=== PATIENT | male | born 1965 | race Caucasian/White ===

== ENCOUNTER 2018-08-25 13:34 | Emergency (ER) | payer MEDICARE, MEDICAID, SELFPAY ==
[2018-08-25 13:35] VITALS: BP 150/85; PULSE 86; RESP 16; TEMP 36.9; O2SAT 95; BMI 38.0
--- NOTE | 2018-08-25 14:08 | NURSING ---
CRISIS AWARE OF PATIENT
[2018-08-25 14:18] LABS: Absolute Lymphocyte Count 1.12 X10^3/ul (0.83-4.51); Absolute Neutrophil Count 3.5 X10^3/uL (2.0-7.7); Basophil# 0.03 X10^3/uL; Basophil% 0.6 % (0-1); Hemoglobin 14.9 g/dl (13.0-16.5); Lymphocyte # 1.12 X10^3/ul (4.0); Lymphocyte % 22.1 % (19-41); Mean Corp Hgb Conc 33.9 g/gl (32-36); Mean Corpuscular Hgb 31.7 pg (27.0-32.0); Mean Corpuscular Volume 93.6 fL (80-94); Mean Platelet Vol. 10.1 fl (6.2-12.0); Monocyte# 0.37 X10^3/uL; Monocyte% 7.3 % (0-10); Neutrophil # 3.45 X10^3/uL (2.7-7.7); Platelet Count 217 K/mm3 (150-450); RBC Distribution Width CV 12.4 % (11.6-14.6); RBC Distribution Width SD 42.6 fl (35.1-43.9); White Blood Count 5.1 K/mm3 (4.4-11.0)
[2018-08-25 14:19] LABS: POSITIVE COUNT NO; POSITIVE DIFFERENTIAL NO; POSITIVE MORPHOLOGY NO
--- NOTE | 2018-08-25 14:21 | ED.VISSUMM ---
- ER Visit Summary Date of Service: 08/25/18 Chief Complaint: Requesting a psychiatric admission History of Present Illness: The patient is a 53 M who was recently released from a home snf sentence. He says he needs time in a hospital. When I asked him why, he says that his dad has paid his rent. He says he cannot stay at his apartment because it has been sublet. He says that he cannot go to a homeless [facility] because he technically has an apartment. I asked him if I could speak with his dad, and he said absolutely not and he wants the strictest confidentiality. He has a history of schizophrenia. He also takes warfarin for history of PE. He says he has been compliant with his medication. He denies any medical complaints or pain. He denies any suicidal or homicidal thoughts. Physical Examination: Afebrile and vital signs unremarkable. Patient has a very flat affect and depressed mood. He speaks very slowly. Denies suicidal or homicidal thoughts. Heart is regular. Lungs clear. Abdomen soft. Moves all extremities. Normal ambulation. Test Results: We will check some basic labs, INR, alcohol level, and drug screen. Emergency Department Course and Treatment: Patient's CBC, BMP are unremarkable. INR 2.9. Alcohol negative. Drug screen pending. Patient has a depressed mood and flat affect. He is having paranoid thoughts. I had social work talk to him. She was unable to provide any assistance. He is becoming more paranoid and she thinks he could benefit from admission. I agree. Crisis will evaluate. The oncoming doctor will coordinate with crisis for placement. Treatment Plan: As above Disposition: Transfer pending crisis evaluation Impression: 1. Psychiatric evaluation 2. Paranoia This note was generated with [employer] software. It may contain incorrect words, spelling, and punctuation that were not noted in review of the chart prior to signing ED Disposition - Plan for ED Patient: Chief Complaint: Mental Health Referrals: Jac Bejarano MD [Primary Care Provider] -
[2018-08-25 14:25] LABS: International Normalized Ratio 2.9; Prothrombin Time (Protime)PT. 30.7 SECONDS (11.7-14.9)
--- NOTE | 2018-08-25 14:25 | ED.DCSUM_ITS ---
- ER Visit Summary Date of Service: 08/25/18 Chief Complaint: Requesting a psychiatric admission History of Present Illness: The patient is a 53 M who was recently released from a home retirement sentence. He says he needs time in a hospital. When I asked him why, he says that his dad has paid his rent. He says he cannot stay at his apartment because it has been sublet. He says that he cannot go to a homeless long term because he technically has an apartment. I asked him if I could speak with his dad, and he said absolutely not and he wants the strictest confidentiality. He has a history of schizophrenia. He also takes warfarin for history of PE. He says he has been compliant with his medication. He denies any medical complaints or pain. He denies any suicidal or homicidal thoughts. Physical Examination: Afebrile and vital signs unremarkable. Patient has a very flat affect and depressed mood. He speaks very slowly. Denies suicidal or homicidal thoughts. Heart is regular. Lungs clear. Abdomen soft. Moves all extremities. Normal ambulation. Test Results: We will check some basic labs, INR, alcohol level, and drug screen. Emergency Department Course and Treatment: Patient's CBC, BMP are unremarkable. INR 2.9. Alcohol negative. Drug screen pending. Patient has a depressed mood and flat affect. He is having paranoid thoughts. I had social work talk to him. She was unable to provide any assistance. He is becoming more paranoid and she thinks he could benefit from admission. I agree. Crisis will evaluate. The oncoming doctor will coordinate with crisis for placement. Treatment Plan: As above Disposition: Transfer pending crisis evaluation Impression: 1. Psychiatric evaluation 2. Paranoia This note was generated with [employer] software. It may contain incorrect words, spelling, and punctuation that were not noted in review of the chart prior to signing ED Disposition - Plan for ED Patient: Chief Complaint: Mental Health Referrals: Jac Bejarano MD [Primary Care Provider] -
[2018-08-25 14:28] LABS: Anion Gap 7 (5-15); BUN 23 mg/dL (7-18); BUN/Creat Ratio 22.8 RATIO (10-20); Chloride 107 mmol/L (98-107); Creatinine, Serum 1.01 mg/dL (0.70-1.30); EST Glomerular Filtration Rate 82 mL/min (>60); Est Glom Filt Rate - Afr Amer 99 mL/min (>60); Estimated Creatinine Clearance 92.84 ml/min; Glucose 91 mg/dL (74-106); Potassium 3.9 mmol/L (3.5-5.1); Sodium Level 139 mmol/L (136-145)
[2018-08-25 14:57] LABS: Alcohol, Blood (Medical)-Serum < 3.0 mg/dL
[2018-08-25 15:27] VITALS: RESP 16
[2018-08-25 15:46] LABS: Amphetamine Urine VISTA NEGATIVE (<1000 ng/mL); Barbiturate Urine VISTA NEGATIVE (< 200 ng/mL); Benzodiazepine Urine VISTA NEGATIVE (< 200 ng/mL); Cocaine Urine VISTA NEGATIVE (< 300 ng/mL); Ecstacy Urine VISTA NEGATIVE (< 500 ng/mL); Methadone Urine VISTA NEGATIVE (< 300 ng/mL); PCP Urine VISTA NEGATIVE (< 25 ng/mL); THC Urine VISTA NEGATIVE (< 50 ng/mL); Vista UDS pH Range 5
--- NOTE | 2018-08-25 15:51 | CM.ED ---
Social Work Assessment Referral from nursing that pt was recently [facility] from [facility] and cannot go back to housing. Face to face with the pt who has a flat affect and pressured speech. Does not make eye contact with this social work manager throughout conversation. Introduced self and role at [facility]. Begin discussing with the pt and he keeps his mouth shut and mumbles with lips closed. Explain to the pt that this social work manager cannot assist him if he does not talk clearly. Pt begins to verbalize responses with pressured speech. Conversation is preoccupied with the utmost confidentiality and are paranoid in nature. Pt states he has been in house custodial/house [place] [facility]. Inquire how long and he states he does not know. States that [place] in these house prisons. Inquire when he was released and he states that he is not sure. Inquire how he got to the hospital and he states that [address] from [address] [place], [place]. Pt reports that his father subleases his apartment to the [facility] Police when he goes to these [place] [facility] houses. Claims that he needs to go to a hospital for help. States that he does have SI, most recently last night. Claims that he would complete this by refusing medication, resuscitation, and life support. Pt claims that he would have to get to this point through natural causes however and denies any intent on inflicting harm upon himself. Denies having firearms or weapons in the house. Denies homicidal ideation. Inquire about hallucinations and delusions, and pt responds, Everything I see and hear is real. Pt goes on to state that he is advanced in mathematics, and that mathematicians and scientists envy him when he comes up with new findings in his math. Goes on with undecipherable ramblings about CSI, FBI, NSA, [facility], [facility] PD... Pt does report a history of psychiatric hospitalization in [place] and [facility] in the past. Last hospitalization was four years ago, but he does not remember what for. He sees a psychiatrist at [facility]. States he last saw her on a Wednesday, but does not remember the date. Claims that he recently transferred psychiatrists and does not know the name of the present one. Declines going to counseling or having a telehealth case manager. Inform that a passementerie worker will come to evaluate if he needs psychiatric hospitalization. Understanding expressed, and denies needs at this time. PLAN: Crisis to evaluate for psychiatric hospitalization. Charleen Rosales, BRANCH SERVICE SPECIALIST, VISUAL SPECIALIST
[2018-08-25 16:59] VITALS: RESP 18
[2018-08-25 17:02] VITALS: RESP 18
--- NOTE | 2018-08-25 21:34 | NURSING ---
FELIPA IS AT THE BEDSIDE SPEAKING WITH THE PATIENT CURRENTLY.
[2018-08-25 22:13] VITALS: BP 140/88; PULSE 88; RESP 18; TEMP 36.9; O2SAT 94
--- NOTE | 2018-08-25 22:15 | NURSING ---
FELIPA TOLD ME THAT THE PATIENT IS AT HIS BASELINE, AND SHE RECOMMENDS THAT HE GO BACK HOME. VITALS ARE STABLE, PATIENT HAS A FLAT AFFECT, AND DENIES ANY NEEDS AT THIS TIME. PATIENT SAID HE LIVES CLOSE AND WOULD PROBABLY WALK HOME IF ABLE.
--- NOTE | 2018-08-25 22:38 | ED.DEP ---
ED Disposition - Plan for ED Patient: Disposition: Home or Assisted Living Chief Complaint: Mental Health Referrals: Counseling,Center [GROUP OF PHYSICIANS] - 1 Day Additional Instructions: Up with counseling center tomorrow. Return to the ER if you are feeling worse or suicidal.
--- NOTE | 2018-08-25 22:41 | ED.RN ---
PATIENT FEELS OK TO GO HOME. HE IS INSTRUCTED TO FOLLOW UP WITH THE COUNSELING CENTER TOMORROW. PATIENT IS GOING TO BE TAKEN HOME BY THE COUNSELOR FELIPA. VITALS ARE STABLE. PATIENT WALKED OUT TO FELIPA'S CAR BY THIS NURSE.
== END 2018-08-25 23:30 | disposition home or self-care (01) ==
PROVIDERS: Emergency Medicine; Emergency Provider Emergency Medicine; Family Provider Internal Medicine; PCP Internal Medicine
DX: F22 Delusional disorders (principal); Z86.711 Personal history of pulmonary embolism; Z79.01 Long term (current) use of anticoagulants; Z72.0 Tobacco use; Z79.899 Other long term (current) drug therapy
CPT/HCPCS: 36415; 80048; 80307; 80320; 85025; 85610; 99282; J7030; G0480

== ENCOUNTER 2019-01-19 08:48 | Emergency (ER) | payer MEDICARE, MEDICAID, SELFPAY ==
[2019-01-19 08:48] VITALS: BP 122/79; PULSE 80; RESP 18; TEMP 36.8; BMI 35.5
--- NOTE | 2019-01-19 08:56 | ED.RN ---
pt states feeling suicidal. lc told pt to come to ed to be admitted to [facility]. pt will not answer questions about plan
--- NOTE | 2019-01-19 09:19 | ED.RN ---
this rn contacted counseling center. they states pt did see his senior case manager and psychiatrist on wednesday and denied being suicidal. this rn then contacted the police. they states they have had no contact with pt since oct. dr black aware
--- NOTE | 2019-01-19 09:20 | ED.VIS.GEN ---
History of Present Illness Chief Complaint: Mental Health Informant: Patient Onset: - - Unable to determine Context: - - Uncertain Timing: - - Unable to determine Quality: Read narrative Current Severity: - - Uncertain Maximum Severity: - - Uncertain Worsened by: Nothing per patient Relieved by: Nothing per patient Associated Symptoms: Suicidal thoughts for greater than 1 year Narrative: Patient is a middle-aged male with history of schizophrenia who saw his therapist on Wednesday. His nurse, Avni, contacted counseling center. He apparently did not voice suicidal thoughts to his counselor as he informed me. Patient acknowledged initially that he has had suicidal thoughts for greater than a year. He apparently has no plan. Attempting to determine if he is in a correction or lives by himself. Patient has history of becoming angry and agitated. History is limited secondary to poverty of speech and refusing to answer questions. Prior similar symptoms: Yes Recent Illness/Hospitalization: No - Last ER visit July 2018 - Past Medical History (1) Depression Status: Acute (2) Psychosis Status: Acute Past Medical History - Allergies and Home Meds Allergies/Adverse Reactions: Allergies JUST A BUNCH OF PHYCHOTROPIC MEDS. Allergy (Uncoded 12/29/14 14:14) Unknown Primary Care Physician: Jac Bejarano MD [Primary Care Provider] - Prior records reviewed: Yes Lives: Alone Smoking Status: Current every day smoker Alcohol: None Drugs: None Review of Systems ROS: Unable to Obtain - Limited answers and documented what the patient was willing to answer. General: Denies: Chills, Fever, Malaise, Sweats Eyes: Denies: Visual changes - bilaterally, Blurred Vision - bilaterally, Diplopia Cardiovascular: Denies: Chest pain, Palpitations Respiratory: Denies: Dyspnea, Cough Gastrointestinal: Denies: Abdominal pain, Nausea, Vomiting, Diarrhea Skin: Denies: Rash Neurological: Denies: Weakness Psych: Reports: Suicidal ideations - Acknowledge suicidal thoughts for greater than 1 year. No plan Physical Exam Vital Signs/Narrative: Vital Signs Temp Pulse Resp BP 01/19/19 08:48 98.2 F 80 18 122/79 H Inital Vital Signs reviewed: Yes General: Well nourished, Well developed, Obese, Unkempt, No Acute Distress - Patient became agitated the more questions that were asked. Head: Normocephalic, Atraumatic Eyes: Perrl, EOMI. Negative for: Pale conjunctiva, Scleral icterus ENT: Moist mucous membranes, No rhinorrhea Cardiovascular: Regular rate, Regular rhythm, No murmurs, Normal S1, Normal S2 Respiratory: No distress, CTA bilaterally, Chest nontender Abdomen: Soft, Nontender, Nondistended, Normal bowel sounds, No masses Back: Nontender, Normal Inspection Skin: Normal color, No rash. Negative for: Cyanosis, Jaundice, Trauma Neurological: Alert, Cranial nerves II-XII grossly intact, Normal Strength, Normal Sensation, Normal DTR, Normal Gait Psychological: - - Poverty of speech, flat/restricted affect. Agitation after he refused to answer questions were asked. Diagnostic/Tx/Re-eval Laboratory Results 01/19/19 01/19/19 01/19/19 09:30 09:30 09:35 WBC 4.0 L RBC 4.43 L Hgb 14.1 Hct 41.4 MCV 93.5 MCH 31.8 MCHC 34.1 RDW 12.5 RDW Differential 42.4 Plt Count 205 MPV 10.0 Immature Gran % (Auto) 0.200 Neut % (Auto) 72.4 H Lymph % (Auto) 16.7 L Sevier % (Auto) 6.5 Eos % (Auto) 3.5 Baso % (Auto) 0.7 Absolute Neuts (auto) 2.9 Absolute Lymphs (auto) 0.67 L Total Counted Not Reportable Sodium 141 Potassium 3.6 Chloride 109 H Carbon Dioxide 26.0 Anion Gap 6 BUN 18 Creatinine 1.04 Estim Creat Clear Calc 90.16 Est GFR (MDRD) Af Amer 96 Est GFR (MDRD) Non-Af 79 BUN/Creatinine Ratio 17.3 Glucose 111 H Calcium 8.5 Urine Color Yellow Urine Clarity Clear Urine pH 6.5 Ur Specific [place] 1.010 Urine Protein Negative Urine Glucose (UA) Normal Urine Ketones Negative Urine Occult Blood Negative Urine Nitrite Negative Urine Bilirubin Negative Urine Urobilinogen Normal Ur Leukocyte Esterase Negative Urine RBC 0 SEEN Urine WBC 0 SEEN Ur Squamous Epith Cells 0-5 SEEN Urine Bacteria 0 SEEN Urine Mucus 0 SEEN - Medical Decision Making Patient with known psychiatric disorder. Since he does not a specific plan has had suicidal thoughts for greater than a year he was not placed in suicide precautions. To evaluate for metabolic infectious causes a CBC, BMP and UA were obtained. His nurse contacted the counseling center. I was made aware that he did not voice suicidal thoughts to a psychiatrist. He states he did. When questioned he became agitated. Will determine if he lives alone or in correction and will attempt to ask additional questions to determine if patient is safe for discharge with urgent follow-up versus [facility] social work faculty member evaluation for acute inpatient therapy. Metabolic infectious work-up was negative. Placed in social work faculty member from counseling center did see patient and agrees this is Mr. Ekaterina almonte. Since he is not homicidal or suicidal he was discharged to home. ED Disposition - Plan for ED Patient: Disposition: Home or Assisted Living Diagnosis: Schizophrenia, catatonic, chronic Instructions: ED Schizophrenia General Referrals: Jac Bejarano MD [Primary Care Provider] - Counseling,Center [GROUP OF PHYSICIANS] - Keep Maria E appointment
--- NOTE | 2019-01-19 09:24 | ED.DCSUM_ITS ---
History of Present Illness Chief Complaint: Mental Health Informant: Patient Onset: - - Unable to determine Context: - - Uncertain Timing: - - Unable to determine Quality: Read narrative Current Severity: - - Uncertain Maximum Severity: - - Uncertain Worsened by: Nothing per patient Relieved by: Nothing per patient Associated Symptoms: Suicidal thoughts for greater than 1 year Narrative: Patient is a middle-aged male with history of schizophrenia who saw his mang[facility] on Wednesday. His nurse, Avni, contacted counseling center. He apparently did not voice suicidal thoughts to his counselor as he informed me. Patient acknowledged initially that he has had suicidal thoughts for greater than a year. He apparently has no plan. Attempting to determine if he is in a shelter or lives by himself. Patient has history of becoming angry and agitated. History is limited secondary to poverty of speech and refusing to answer questions. Prior similar symptoms: Yes Recent Illness/Hospitalization: No - Last ER visit July 2018 - Past Medical History (1) Depression Status: Acute (2) Psychosis Status: Acute Past Medical History - Allergies and Home Meds Allergies/Adverse Reactions: Allergies JUST A BUNCH OF PHYCHOTROPIC MEDS. Allergy (Uncoded 12/29/14 14:14) Unknown Primary Care Physician: Jac Bejarano MD [Primary Care Provider] - Prior records reviewed: Yes Lives: Alone Smoking Status: Current every day smoker Alcohol: None Drugs: None Review of Systems ROS: Unable to Obtain - Limited answers and documented what the patient was willing to answer. General: Denies: Chills, Fever, Malaise, Sweats Eyes: Denies: Visual changes - bilaterally, Blurred Vision - bilaterally, Diplopia Cardiovascular: Denies: Chest pain, Palpitations Respiratory: Denies: Dyspnea, Cough Gastrointestinal: Denies: Abdominal pain, Nausea, Vomiting, Diarrhea Skin: Denies: Rash Neurological: Denies: Weakness Psych: Reports: Suicidal ideations - Acknowledge suicidal thoughts for greater than 1 year. No plan Physical Exam Vital Signs/Narrative: Vital Signs Temp Pulse Resp BP 01/19/19 08:48 98.2 F 80 18 122/79 H Inital Vital Signs reviewed: Yes General: Well nourished, Well developed, Obese, Unkempt, No Acute Distress - Patient became agitated the more questions that were asked. Head: Normocephalic, Atraumatic Eyes: Perrl, EOMI. Negative for: Pale conjunctiva, Scleral icterus ENT: Moist mucous membranes, No rhinorrhea Cardiovascular: Regular rate, Regular rhythm, No murmurs, Normal S1, Normal S2 Respiratory: No distress, CTA bilaterally, Chest nontender Abdomen: Soft, Nontender, Nondistended, Normal bowel sounds, No masses Back: Nontender, Normal Inspection Skin: Normal color, No rash. Negative for: Cyanosis, Jaundice, Trauma Neurological: Alert, Cranial nerves II-XII grossly intact, Normal Strength, Normal Sensation, Normal DTR, Normal Gait Psychological: - - Poverty of speech, flat/restricted affect. Agitation after he refused to answer questions were asked. Diagnostic/Tx/Re-eval Laboratory Results 01/19/19 01/19/19 01/19/19 09:30 09:30 09:35 WBC 4.0 L RBC 4.43 L Hgb 14.1 Hct 41.4 MCV 93.5 MCH 31.8 MCHC 34.1 RDW 12.5 RDW Differential 42.4 Plt Count 205 MPV 10.0 Immature Gran % (Auto) 0.200 Neut % (Auto) 72.4 H Lymph % (Auto) 16.7 L [place] % (Auto) 6.5 Eos % (Auto) 3.5 Baso % (Auto) 0.7 Absolute Neuts (auto) 2.9 Absolute Lymphs (auto) 0.67 L Total Counted Not Reportable Sodium 141 Potassium 3.6 Chloride 109 H Carbon Dioxide 26.0 Anion Gap 6 BUN 18 Creatinine 1.04 Estim Creat Clear Calc 90.16 Est GFR (MDRD) Af Amer 96 Est GFR (MDRD) Non-Af 79 BUN/Creatinine Ratio 17.3 Glucose 111 H Calcium 8.5 Urine Color Yellow Urine Clarity Clear Urine pH 6.5 Ur Specific [place] 1.010 Urine Protein Negative Urine Glucose (UA) Normal Urine Ketones Negative Urine Occult Blood Negative Urine Nitrite Negative Urine Bilirubin Negative Urine Urobilinogen Normal Ur Leukocyte Esterase Negative Urine RBC 0 SEEN Urine WBC 0 SEEN Ur Squamous Epith Cells 0-5 SEEN Urine Bacteria 0 SEEN Urine Mucus 0 SEEN - Medical Decision Making Patient with known psychiatric disorder. Since he does not a specific plan has had suicidal thoughts for greater than a year he was not placed in suicide precautions. To evaluate for metabolic infectious causes a CBC, BMP and UA were obtained. His nurse contacted the counseling center. I was made aware that he did not voice suicidal thoughts to a psychiatrist. He states he did. When questioned he became agitated. Will determine if he lives alone or in shelter and will attempt to ask additional questions to determine if patient is safe for discharge with urgent follow-up versus [facility] psychosocial rehabilitation counselor evaluation for acute inpatient therapy. Metabolic infectious work-up was negative. Placed in psychosocial rehabilitation counselor from [facility] did see patient and agrees this is Mr. Ekaterina almonte. Since he is not homicidal or suicidal he was discharged to home. ED Disposition - Plan for ED Patient: Disposition: Home or Assisted Living Diagnosis: Schizophrenia, catatonic, chronic Instructions: ED Schizophrenia General Referrals: Jac Bejarano MD [Primary Care Provider] - Counseling,Center [GROUP OF PHYSICIANS] - Keep Maria E appointment
[2019-01-19 10:08] LABS: Absolute Lymphocyte Count 0.67 X10^3/ul (0.83-4.51); Absolute Neutrophil Count 2.9 X10^3/uL (2.0-7.7); Basophil# 0.03 X10^3/uL; Basophil% 0.7 % (0-1); Eosinophil# 0.14 X10^3/uL; Eosinophils% 3.5 % (0-5); Hematocrit 41.4 % (40-54); Hemoglobin 14.1 g/dl (13.0-16.5); Lymphocyte # 0.67 X10^3/ul (4.0); Lymphocyte % 16.7 % (19-41); Mean Corp Hgb Conc 34.1 g/gl (32-36); Mean Corpuscular Hgb 31.8 pg (27.0-32.0); Mean Corpuscular Volume 93.5 fL (80-94); Monocyte# 0.26 X10^3/uL; Monocyte% 6.5 % (0-10); Neutrophil % 72.4 % (47-70); POSITIVE COUNT NO; POSITIVE DIFFERENTIAL NO; POSITIVE MORPHOLOGY NO; Platelet Count 205 K/mm3 (150-450); RBC Distribution Width CV 12.5 % (11.6-14.6); RBC Distribution Width SD 42.4 fl (35.1-43.9); Red Blood Count 4.43 M/mm3 (4.6-6.2)
[2019-01-19 10:13] LABS: Anion Gap 6 (5-15); BUN 18 mg/dL (7-18); BUN/Creat Ratio 17.3 RATIO (10-20); Calcium,Total 8.5 mg/dL (8.5-10.1); Chloride 109 mmol/L (98-107); Creatinine, Serum 1.04 mg/dL (0.70-1.30); EST Glomerular Filtration Rate 79 mL/min (>60); Est Glom Filt Rate - Afr Amer 96 mL/min (>60); Estimated Creatinine Clearance 90.16 ml/min; Glucose 111 mg/dL (74-106); Potassium 3.6 mmol/L (3.5-5.1); Sodium Level 141 mmol/L (136-145)
[2019-01-19 10:47] LABS: Bacteria 0 SEEN /hpf (None Seen); Mucous, Urine 0 SEEN /hpf (<or=2+); Red Blood Cells-Urine 0 SEEN /hpf (0-5); White Blood Cells 0 SEEN /hpf (0-5)
[2019-01-19 10:48] LABS: Color, Urine Yellow (Yellow); Glucose, Dipstick Normal (Normal); Ketone-Dipstick Negative (Negative); Leukocyte Esterase-Dipstick Negative /ul (Negative); Nitrite-Dipstick Negative (Negative); Occult Blood-Urine Negative /ul (Negative); Protein-Dipstick Negative (Negative); Urine Bilirubin Dipstick Negative (Negative); Urine Clarity Clear (Clear); Urine Urobilinogen Normal (Normal); Urine pH 6.5 (5.0 - 8.0)
--- NOTE | 2019-01-19 10:56 | NURSING ---
GEOVANNA, CRISIS, HAS CHART
--- NOTE | 2019-01-19 10:56 | CM.ED ---
SOCIAL WORK CASE DISCUSSED WITH GEOVANNA FROM CRISIS. GEOVANNA TO SEE PATIENT AT THIS TIME. HAILEE JOHNSON, TYRE FINISHER AND EXAMINER, BEHAVIORAL HEALTH DIRECTOR.
[2019-01-19 10:57] LABS: Squamous Epithelial Cells - UA 0-5 SEEN /hpf (0-5)
--- NOTE | 2019-01-19 11:10 | CM.ED ---
SOCIAL WORK UPDATED BY GEOVANNA WITH CRISIS, PLAN FOR PATIENT TO RETURN HOME. DR. DIXON UPDATED BY CRISIS. HAILEE JOHNSON, SUPERVISOR LANDSCAPE, COURTESY BUS DRIVER.
== END 2019-01-19 12:54 | disposition home or self-care (01) ==
PROVIDERS: Emergency Provider Emergency Medicine; Family Provider Internal Medicine; PCP Internal Medicine
DX: F20.2 Catatonic schizophrenia (principal); E66.9 Obesity, unspecified; F17.200 Nicotine dependence, unspecified, uncomplicated
CPT/HCPCS: 36415; 80048; 81001; 85025

== ENCOUNTER 2019-01-19 19:36 | Emergency (ER) | payer MEDICARE, MEDICAID, SELFPAY ==
[2019-01-19 08:48] VITALS: BMI 35.5
[2019-01-19 19:38] VITALS: BP 146/84; PULSE 81; RESP 17; TEMP 27.2; O2SAT 95; BMI 34.9
--- NOTE | 2019-01-19 20:20 | CM.ED ---
SOCIAL WORK UPDATED BY NURSE, JOSH, PATIENT REQUESTING TO SPEAK WITH REPAIRER [employer]. PATIENT WAS SEEN IN ED EARLIER THIS DAY BY BULK PLANT AGENT, GEOVANNA. MET WITH PATIENT AT BEDSIDE. PATIENT REPORTS POLICE WANT ME OUT OF [facility]. IF I DON'T LEAVE THEY ARE GOING TO KILL ME. PATIENT STATES HIS FATHER PAID FOR HIS APARTMENT AND NOW THE POLICE ARE TELLING PATIENT THAT IF HE GOES BACK TO THE APARTMENT HE WILL BE ARRESTED FOR TRESPASSING. PATIENT REPORTS WISHES TO GO TO THE HOMELESS INTERMEDIATE IN [place]. PATIENT CONCERNED ABOUT HIS MEDICATION AND HOW HE WILL BE ABLE TO GET THEM IF HE MUST LEAVE TOWN. INQUIRED ABOUT LEGAL GUARDIAN. PATIENT REPORTS GUARDIAN IS HAILEE AGUILAR. PATIENT DOES NOT KNOW PHONE NUMBER FOR GUARDIAN. INFORMED PATIENT THIS WORKER WOULD LIKE TO CALL GUARDIAN TO DISCUSS SAFE AND APPROPRIATE D/C PLANNING. PATIENT VERBALIZED UNDERSTANDING. CALL TO PATIENT'S GUARDIAN, HAILEE AGUILAR ([phone]) WHO REPORTS NONE OF THE ABOVE IS TRUE AND FEELS PATIENT IS REQUIRING INPATIENT PSYCH HOSPITALIZATION. PATIENT WITH HX OF SCHIZOPHRENIA. HAILEE REQUESTING CALL FROM BULK PLANT AGENT. CASE DISCUSSED WITH DR. OQUENDO AND BULK PLANT AGENT, BORIS. CRISIS TO ASSESS PATIENT. HAILEE JOHNSON, RESUME WRITER, COST MANAGER.
--- NOTE | 2019-01-19 20:30 | ED.VISSUMM ---
- ER Visit Summary Date of Service: 01/19/19 Chief Complaint: Psychiatric evaluation History of Present Illness: The patient is a 53 M history of schizophrenia was seen earlier in the ED and discharged home from the ED. Patient denies being suicidal or homicidal. He was seen by clinical social work aide earlier today with his visit, he was not open with his history at that time. He denies suicidal homicidal ideations. He was deemed appropriate for discharge. Patient returns to the ED today stating he was kicked out of his apartment today and his staff has been confiscated. He states that he was told if he goes back to the department he will be trespassing police will be called. He states he needs his medications. He states he has a place at the homeless assisted in [place] and he does have cab fare. He denies any symptoms. Denies alcohol, tobacco, illicit drug use. Shortly after discussion with patient, clinical social work aide here at present, reportedly discussed with his gearcase assembler which patient states is Elbert Razo, reports patient is trying to skip town. Reports he states that police are after him he is trying to leave town. Reports that he is not evicted. Reports that patient has done this in the past. Physical Examination: General: Alert and oriented ?3, no acute distress HEENT: Normocephalic, atraumatic. Moist mucosa membranes Neck: supple, nontender. Cardiovascular: Regular rate and rhythm, no murmurs Respiratory: Normal breath sounds, symmetric, no distress Abdomen: Soft, nontender, nondistended Extremities: Nontender, no edema, pulses intact ?4 Neuro: no focal neurological deficits. Psych: Denies suicidal homicidal ideations. Blunt Affect. Denies auditory or visual hallucinations. Test Results: Toxin alcohol normal Emergency Department Course and Treatment: Patient had CBC BMP UA obtained earlier today are normal. We will add a tox screen in alcohol level. We will plan on having crisis evaluation. Patient medically cleared. Evaluated by initial crisis team primary care physician prior to shift change, he was known to her from [place]. Reports this is his usual behavior with his schizophrenia flare. Currently plan on working on placement of patient. Treatment Plan: [] Disposition: Pending Impression: 1. Acute psychosis 2. History of schizophrenia This note was generated with [employer] dictation software. It may contain incorrect words, spelling, and punctuation that were not noted in review of the chart prior to signing ED Disposition - Plan for ED Patient: Diagnosis: Psychosis, Schizophrenia Referrals: Jac Bejarano MD [Primary Care Provider] -
--- NOTE | 2019-01-19 20:34 | ED.DCSUM_ITS ---
- ER Visit Summary Date of Service: 01/19/19 Chief Complaint: Psychiatric evaluation History of Present Illness: The patient is a 53 M history of schizophrenia was seen earlier in the ED and discharged home from the ED. Patient denies being suicidal or homicidal. He was seen by social media director earlier today with his visit, he was not open with his history at that time. He denies suicidal homicidal ideations. He was deemed appropriate for discharge. Patient returns to the ED today stating he was kicked out of his apartment today and his staff has been confiscated. He states that he was told if he goes back to the department he will be trespassing police will be called. He states he needs his medications. He states he has a place at the homeless skilled nursing in [place] and he does have cab fare. He denies any symptoms. Denies alcohol, tobacco, illicit drug use. Shortly after discussion with patient, social media director here at present, reportedly discussed with his case management assistant which patient states is Elbert Razo, reports patient is trying to skip town. Reports he states that police are after him he is trying to leave town. Reports that he is not evicted. Reports that patient has done this in the past. Physical Examination: General: Alert and oriented ?3, no acute distress HEENT: Normocephalic, atraumatic. Moist mucosa membranes Neck: supple, nontender. Cardiovascular: Regular rate and rhythm, no murmurs Respiratory: Normal breath sounds, symmetric, no distress Abdomen: Soft, nontender, nondistended Extremities: Nontender, no edema, pulses intact ?4 Neuro: no focal neurological deficits. Psych: Denies suicidal homicidal ideations. Blunt Affect. Denies auditory or visual hallucinations. Test Results: Toxin alcohol normal Emergency Department Course and Treatment: Patient had CBC BMP UA obtained earlier today are normal. We will add a tox screen in alcohol level. We will plan on having crisis evaluation. Patient medically cleared. Evaluated by initial crisis fast food team member prior to shift change, he was known to her from [place]. Reports this is his usual behavior with his schizophrenia flare. Currently plan on working on placement of patient. Treatment Plan: [] Disposition: Pending Impression: 1. Acute psychosis 2. History of schizophrenia This note was generated with [employer] dictation software. It may contain incorrect words, spelling, and punctuation that were not noted in review of the chart prior to signing ED Disposition - Plan for ED Patient: Diagnosis: Psychosis, Schizophrenia Referrals: Jac Bejarano MD [Primary Care Provider] -
[2019-01-19 21:23] VITALS: PULSE 87; RESP 16; O2SAT 98
[2019-01-19 21:37] LABS: Amphetamine Urine VISTA NEGATIVE (<1000 ng/mL); Barbiturate Urine VISTA NEGATIVE (< 200 ng/mL); Benzodiazepine Urine VISTA NEGATIVE (< 200 ng/mL); Cocaine Urine VISTA NEGATIVE (< 300 ng/mL); Ecstacy Urine VISTA NEGATIVE (< 500 ng/mL); Methadone Urine VISTA NEGATIVE (< 300 ng/mL); PCP Urine VISTA NEGATIVE (< 25 ng/mL); THC Urine VISTA NEGATIVE (< 50 ng/mL); Vista UDS pH Range 6
[2019-01-19 22:22] VITALS: PULSE 88; RESP 16; O2SAT 98
--- NOTE | 2019-01-19 22:22 | CM.ED ---
SOCIAL WORK AMPOULE EXAMINER, FELIPA WORKING ON PLACEMENT AT THIS TIME. HAILEE JOHNSON, MANAGEMENT LIAISON, HOUSING INSTALLER.
[2019-01-19 23:30] VITALS: BP 136/80; PULSE 74; RESP 16; O2SAT 98
[2019-01-20] VITALS (14 sets, daily range): BP systolic 121–134; BP diastolic 79–90; PULSE 65–92; RESP 14–70; TEMP 36.8; O2SAT 96–99
--- NOTE | 2019-01-20 04:03 | ED.RN ---
verbally reviewed medication list with pt. home meds ordered.
[2019-01-20] MEDS: Famotidine 20 MG Tablet PO (06:19)
[2019-01-20] MEDS: Multivitamins,Therapeutic Tablet 1 TABLET PO (06:19)
[2019-01-20] MEDS: Levothyroxine 50 MCG Tablet PO (06:19)
--- NOTE | 2019-01-20 09:26 | EKG12_ITS ---
Test Reason : MENTAL HEALTH Blood Pressure : / mmHG Vent. Rate : 065 BPM Atrial Rate : 065 BPM P-R Int : 138 ms QRS Dur : 096 ms QT Int : 434 ms P-R-T Axes : 024 000 -07 degrees QTc Int : 451 ms Normal sinus rhythm Minimal voltage criteria for LVH, may be normal variant Borderline ECG Confirmed by KAT HAMPTON, ABDELRAHMAN ([id number]), fan mail editor CIPRIANO VERA ([id number]) on 01/23/2019 11:40:41 AM Referred By: ZACK Confirmed By:ABDELRAHMAN STEPHENS MD
[2019-01-20 10:23] LABS: International Normalized Ratio 2.5; Prothrombin Time (Protime)PT. 26.8 SECONDS (11.7-14.9)
[2019-01-20] MEDS: Benztropine 2 MG Tablet 1 MG PO (11:25)
[2019-01-20] MEDS: Fenofibrate 145 MG Tablet PO (11:26)
[2019-01-20] MEDS: Ziprasidone HCl 20 MG Capsule 80 MG PO (11:26)
== END 2019-01-20 13:29 ==
PROVIDERS: Emergency Medicine; Emergency Provider Emergency Medicine; Family Provider Internal Medicine; PCP Internal Medicine
DX: F23 Brief psychotic disorder (principal); Z72.0 Tobacco use; Z59.0 Homelessness; Z79.899 Other long term (current) drug therapy; Z79.01 Long term (current) use of anticoagulants
CPT/HCPCS: 36415; 80048; 80307; 80320; 81001; 85025; 85610; 93005; 99282; 99284; G0480

== ENCOUNTER 2019-04-06 21:17 | Emergency (ER) | payer MEDICARE, MEDICAID, SELFPAY ==
[2019-04-06 21:17] VITALS: BP 131/76; PULSE 77; RESP 16; TEMP 36.3; O2SAT 94; BMI 33.9
[2019-04-06 21:50] LABS: Absolute Lymphocyte Count 1.51 X10^3/ul (0.83-4.51); Basophil# 0.02 X10^3/uL; Basophil% 0.3 % (0-1); Eosinophils% 1.6 % (0-5); Hematocrit 40.6 % (40-54); Lymphocyte # 1.51 X10^3/ul (4.0); Lymphocyte % 24.6 % (19-41); Mean Corp Hgb Conc 34.5 g/gl (32-36); Mean Corpuscular Volume 92.7 fL (80-94); Monocyte# 0.51 X10^3/uL; Monocyte% 8.3 % (0-10); Neutrophil # 3.99 X10^3/uL (2.7-7.7); Neutrophil % 65.2 % (47-70); Platelet Count 213 K/mm3 (150-450); RBC Distribution Width CV 12.5 % (11.6-14.6); RBC Distribution Width SD 42.6 fl (35.1-43.9); Red Blood Count 4.38 M/mm3 (4.6-6.2); White Blood Count 6.1 K/mm3 (4.4-11.0)
[2019-04-06 21:53] LABS: Anion Gap 8 (5-15); BUN 21 mg/dL (7-18); BUN/Creat Ratio 20.8 RATIO (10-20); Calcium,Total 8.9 mg/dL (8.5-10.1); Chloride 107 mmol/L (98-107); Creatinine, Serum 1.01 mg/dL (0.70-1.30); EST Glomerular Filtration Rate 82 mL/min (>60); Est Glom Filt Rate - Afr Amer 99 mL/min (>60); Estimated Creatinine Clearance 92.84 ml/min; Glucose 91 mg/dL (74-106); Potassium 3.5 mmol/L (3.5-5.1); Sodium Level 140 mmol/L (136-145)
[2019-04-06 21:56] LABS: POSITIVE COUNT NO; POSITIVE DIFFERENTIAL NO; POSITIVE MORPHOLOGY NO
--- NOTE | 2019-04-06 21:58 | ED.RN ---
PATIENT EXHIBITS A VERY FLAT AFFECT, HE MOSTLY ONLY ANSWERS YES/NO QUESTIONS. HE WILL NOT MAKE EYE CONTACT. STATES NO WHEN I ASKED HIM IF HE FELT SAFE AT HOME. HE LIVES ALONE AND DENIES SUICIDAL OR HOMICIDAL IDEATION.
--- NOTE | 2019-04-06 22:06 | NURSING ---
CALLED CRISIS AT [phone]
[2019-04-06 22:16] LABS: Amphetamine Urine VISTA NEGATIVE (<1000 ng/mL); Barbiturate Urine VISTA NEGATIVE (< 200 ng/mL); Benzodiazepine Urine VISTA NEGATIVE (< 200 ng/mL); Cocaine Urine VISTA NEGATIVE (< 300 ng/mL); Ecstacy Urine VISTA NEGATIVE (< 500 ng/mL); Methadone Urine VISTA NEGATIVE (< 300 ng/mL); PCP Urine VISTA NEGATIVE (< 25 ng/mL); THC Urine VISTA NEGATIVE (< 50 ng/mL); Vista UDS pH Range 6
[2019-04-06 22:31] VITALS: RESP 18
[2019-04-06 23:07] VITALS: RESP 18
[2019-04-06 23:30] VITALS: BP 105/81; PULSE 70; RESP 20; O2SAT 95
--- NOTE | 2019-04-06 23:30 | ED.VISSUMM ---
- ER Visit Summary Date of Service: 04/06/19 Chief Complaint: Depressed History of Present Illness: The patient is a 53 M history of depression and schizophrenia. Patient drove himself in the ER because he is concerned that his schizophrenia is flaring up. He denies being homicidal or suicidal. He is unsure if he needs hospitalized. He denies any plan to hurt himself. He denies any current attempts. Physical Examination: Middle-aged male no acute distress. Vital signs are stable. He is afebrile. He is calm and collected. He is not violent or acting out. HEENT exam unremarkable. Neck nontender no lymphadenopathy. Lungs good auscultation bilaterally. Heart regular rhythm no murmur abdomen soft and nontender. Patient is moving all 4 extremities. No edema. Neurologically he is awake and alert with no focal motor deficits. Test Results: ED mental health screening labs. White count 6. Hemoglobin 14. Chemistries normal. Tox screen negative. Alcohol normal. Emergency Department Course and Treatment: Repeat exam patient is doing well at 2331. He is already been evaluated by the crisis personnel. They know this patient. He was very open and honest with them. He is comfortable being discharged back to his home. He drove himself to the ER tonight. He knows if he gets worse to return to the ER. They will do close follow-up with his casework supervisor tomorrow. Treatment Plan: Close outpatient follow-up to the counseling center and his casework supervisor. Disposition: Discharge Impression: Acute exacerbation of paranoid schizophrenia and depression This note was generated with [employer] dictation software. It may contain incorrect words, spelling, and punctuation that were not noted in review of the chart prior to signing ED Disposition - Plan for ED Patient: Referrals: Jac Bejarano MD [Primary Care Provider] -
--- NOTE | 2019-04-06 23:33 | ED.DEP ---
ED Disposition - Plan for ED Patient: Disposition: Home or Assisted Living Instructions: SCHIZOPHRENIA, General Referrals: Counseling,Center [GROUP OF PHYSICIANS] - As soon as possible Additional Instructions: Return to the ER if you are feeling worse. Follow-up with your rn case mgr and counseling center tomorrow.
--- NOTE | 2019-04-06 23:47 | ED.RN ---
THIS NURSE REVIEWED D/C INSTRUCTIONS WITH PT. PT VERBALIZED UNDERSTANDING OF INSTRUCTIONS. PT DENIES FURTHER NEEDS OR QUESTIONS AT THIS TIME. 2 BAG OF PERSONAL BELONGINGS RETURNED TO THE PT
== END 2019-04-06 23:47 | disposition home or self-care (01) ==
PROVIDERS: Emergency Provider Emergency Medicine; Family Provider Internal Medicine; PCP Internal Medicine
DX: F20.0 Paranoid schizophrenia (principal); F32.9 Major depressive disorder, single episode, unspecified; Z72.0 Tobacco use
CPT/HCPCS: 80048; 80307; 80320; 85025; 99282; G0480

== ENCOUNTER 2021-04-19 12:53 | Emergency (ER) | payer MEDICARE, SELFPAY ==
[2021-04-19 12:54] VITALS: BP 143/80; PULSE 92; RESP 14; TEMP 36.5; O2SAT 97; BMI 34.9
--- NOTE | 2021-04-19 13:17 | EDS_ITS ---
HPI HPI - Psych History of Present Illness Chief Complaint: Mental Health Informant: patient Narrative Narrative: Patient is requesting help for place to stay in a way to get his medications and money. He evidently has been living in an apartment for 4 years. A counseling center pays the rent directly for him. However, the apartment is evidently in somebody else's name. This person paid the initial deposit. This person is evidently kicked him out in the past. The patient was kicked out this morning. I do not know the details as to why. The patient has his medications in the apartment in bubble packs. He gets his medications delivered every week. He is due to have them delivered Wednesday. He is not suicidal or homicidal. He just wants help because he does not know how to solve these problems. He also does not have access to any money. This is mailed to him weekly also. He has no physical complaint. Nothing is making his symptoms better or worse. He is hoping we can help solve some of these issues. [facility] Medical History (Updated 04/19/21 @ 14:[address] Placido Crews MD) Depression Schizophrenia Home Medications Ziprasidone Hcl [Geodon] 80 mg PO BID 07/23/13 [History Last Taken Unknown] benztropine 1 mg PO BID 07/23/13 [History Last Taken Unknown] levothyroxine 50 mcg PO DAILY 07/23/13 [History Last Taken Unknown] multivitamin with folic acid [Thera] 1 tab PO DAILY 07/23/13 [History Last Taken Unknown] Fenofibrate Nanocrystallized [Fenofibrate] 145 mg PO DAILY 12/07/13 [History Last Taken Unknown] warfarin [Coumadin] 7.5 mg PO MOTUWETHFR 03/18/14 [History Last Taken Unknown] warfarin [Coumadin] 5 mg PO SUSA 12/24/14 [History Last Taken Unknown] Allergy/AdvReac Type Severity Reaction Status Date / Time JUST A BUNCH OF Allergy Unknown Uncoded 04/19/21 12:54 PHYCHOTROPIC MEDS. Social History Smoking Status: Never smoker ROS ROS ED Constitutional Constitutional ED: Denies chills or fever(s) Eyes Eyes: Denies blurry vision ENT ENT ED: Denies rhinorrhea or sore throat Cardiovascular Cardiovascular: Denies chest pain Respiratory/Chest Respiratory/Chest: Denies cough or dyspnea Gastrointestinal Gastrointestinal: Denies abdominal pain, nausea or vomiting Musculoskeletal Musculoskeletal: Denies back pain Integumentary Denies rash Neurologic Neurologic: Denies headache(s) Psychiatric Psychiatric: Denies suicidal ideation or suicidal thoughts Hematologic/Lymphatic Hematologic/Lymphatic: Reports easy bleeding and easy bruising Allergic/Immunologic Allergic/Immunologic ED: Denies urticaria EXAM Physical Exam Const Vital Signs: 04/19/21 12:54 Temperature 97.7 F L Temperature Source Temporal Pulse Rate 92 Respiratory Rate 14 Blood Pressure 143/80 H Blood Pressure Mean 101 Pulse Ox 97 Oxygen Delivery Method Room Air Positive well nourished and well developed; Negative for unkempt General Appearance ED: well developed and NAD; Negative for unkempt HEENT normocephalic and atraumatic Eyes PERRL Resp normal respiratory effort and clear to auscultation bilaterally Cardio Rate: regular rate Rhythm: regular rhythm GI non-tender and non-distended Palpation: soft Extremity normal to inspection Neuro oriented x3 Sensorium / Orientation: alert Psych Psych Narrative: Patient has a flat affect but he is actually very cooperative. He wants help. He is not suicidal or homicidal. Appearance: Negative for unkempt Judgement: fair Skin Rashes: no rashes MDM MDM MDM Narrative Medical decision making narrative: Social work per his talk with the patient as well as crisis/care center. Evidently this is a recurrent issue that this patient does. He actually lives by himself. He is not thrown out of his apartment. He can get back in. He has all his medicines. They are going to follow him up on Wednesday. It is evidently kind of a chronic psychosis that he has that somebody throws him out of his apartment. This is been going on for years and is not out of normal for the patient. He is appropriately dressed and groomed. He is a good informant. Care center knows him very well and this is normal for this patient. There is no indication that he needs to be admitted at this time. I explained to him that he is okay to go to his apartment. He will be followed up with on Wednesday. He was okay with this plan. Discharge Plan Triage Chief Complaint: Mental Health ED Provider: Placido Crews Dx/Rx/DC Orders Clinical Impression: Psychosis Instructions: ED Schizophrenia, General Prescriptions: No Action levothyroxine 50 MCG tablet 50 mcg PO DAILY RF: 0 benztropine 2 MG tablet 1 mg PO BID RF: 0 multivitamin with folic acid [Thera] 1 TABLET tablet 1 tab PO DAILY RF: 0 Ziprasidone Hcl [Geodon] 80 MG capsule 80 mg PO BID RF: 0 Fenofibrate Nanocrystallized [Fenofibrate] 145 MG tablet 145 mg PO DAILY RF: 0 warfarin [Jantoven] 7.5 MG tablet 7.5 mg PO MOTUWETHFR RF: 0 warfarin [Jantoven] 5 MG tablet 5 mg PO SUSA RF: 0 Primary Care Provider: Jac Bejarano Referrals: Jac Bejarano MD [Primary Care Provider] - Disposition Disposition: Home, Self Care
--- NOTE | 2021-04-19 14:13 | CASEMGMT ---
Addendum entered by Edyta Jeong 04/19/21 21:26: ZAHRA updated MD Crews about conversation with staff from [facility], Lesly. Also of note, patient did not voice any SI/HI to staff. Patient issues was involving money from the counseling center (he said he had 1400) and getting new apartment. Patient was not resistive to leaving and had indicated he could ride the bus and was encouraged to ride the bus on Wednesday to see his disease case manager at [facility] and he verbalized understanding. Edyta Adenike ZULETA Original Note: ZAHRA Note Referral Source: assistant food service manager Reason: Housing issues and issues with getting money from [facility]. SW met with patient . He indicated that he has been at his current apartment for 4 years but he got thrown out this morning by the person who holds the lease. Patient said that he can't go back there and needs an apartment. SW explained role of this teletypewriter operator and that this teletypewriter operator has no access to securing an apartment for patient and the only option available for patient as a resource is [facility]. Patient said that he has been in the apartment but this morning the vi that 'holds the lease came and they said that i had to leave. SW repeatedly asked who they were and patient did not answer. SW explained that to help patient it would be beneficial to know who they were and he he did not answer. Patient said that he has been taking his medication and was able to voice he had to take his upcoming medication at 4pm. Patient also talked about [facility] being his payee and him not having money to pay for a phone call. Patient asked this teletypewriter operator to call [facility]. SW called [facility] and they have no beds. Patient said that he has not been evicted. SW updated patient that they have no beds at the [facility]. ZAHRA called [facility] at [facility]. She said that patient's flat affect and no eye contact and loose hallucinations are his baseline. Lesly confirmed that patient resides by himself in apartment beside the hospital on [address]. Lesly will leave message for casemanager that patient was in the ED this weekend. ZAHRA updated MOHSEN Bedolla and MD Aquino. ZAHRA advised that Lesly from the counseling center will let the patient's disease case manager know that patient is at the hospital this weekend. SW advised patient that he could take a bus to [facility] on Wednesday to inquire about speaking to staff and disease case manager. ZAHRA explained to patient that Lesly will advise his casemanager that he was here. Patient was updated on that there are no housing resources and that Lesly from [facility] will follow up and update his disease case manager. Patient was discharged and left the hospital. Of note, patient was clean, no hygiene issues and appeared to be caring for his ADLS's. Plan: Patient at baseline. Follow up with his casemanager at [facility]. Edyta ZULETA
[2021-04-19 14:50] VITALS: RESP 16
== END 2021-04-19 14:50 | disposition home or self-care (01) ==
PROVIDERS: Emergency Provider Emergency Medicine; PCP Internal Medicine
DX: F20.9 Schizophrenia, unspecified (principal); F32.9 Major depressive disorder, single episode, unspecified; Z79.899 Other long term (current) drug therapy
CPT/HCPCS: 99282

== ENCOUNTER 2021-05-02 16:47 | Emergency (ER) | payer MEDICARE, SELFPAY ==
[2021-05-02 16:47] VITALS: BP 145/104; PULSE 89; RESP 16; TEMP 35.7; O2SAT 97; BMI 33.9
[2021-05-02 17:32] LABS: Absolute Lymphocyte Count 0.94 X10^3/uL (0.83-4.51); Absolute Neutrophil Count 4.3 X10^3/uL (2.0-7.7); Basophil# 0.04 X10^3/uL; Basophil% 0.7 % (0-1); Eosinophil# 0.09 X10^3/uL; Eosinophils% 1.5 % (0-5); Hemoglobin 14.1 g/dL (13.0-16.5); Lymphocyte # 0.94 X10^3/ul (0.83-4.51); Mean Corpuscular Hgb 31.2 pg (27.0-32.0); Mean Corpuscular Volume 97.3 fL (80-94); Mean Platelet Vol. 10.1 fl (6.2-12.0); Monocyte# 0.52 X10^3/uL; Monocyte% 8.9 % (0-10); NRBC Flagged by Analyzer 0 % (0-5); Neutrophil # 4.26 X10^3/uL (2.7-7.7); Neutrophil % 72.6 % (47-70); Platelet Count 236 K/mm3 (150-450); RBC Distribution Width CV 12.4 % (11.6-14.6); RBC Distribution Width SD 44.8 fl (35.1-43.9); Red Blood Count 4.52 M/mm3 (4.6-6.2); White Blood Count 5.9 K/mm3 (4.4-11.0)
--- NOTE | 2021-05-02 17:42 | EDS_ITS ---
HPI HPI - Psych History of Present Illness Chief Complaint: Mental Health Informant: patient Onset/Context/Timing Onset: Weeks Current Severity: Mild Maximum Severity: Mild Associated Symptoms Associated Symptoms - Psych: Positive for Depressed and Auditory Hallucinations Narrative Narrative: 55-year-old male history of schizophrenia and on blood thinners for pulmonary embolus in the past. Patient states he was kicked out of his apartment. He came in 1 to 2 weeks ago with a similar complaint. Is been verified with the counseling center earlier today by her social and political studies professor that he is not actually being kicked out of the apartment but he believes so because the voices are telling that. Patient's been walking the streets the last 2 days. He thinks he is homeless when he is really not. He denies being suicidal. He denies any recent physical complaints. Prior similar symptoms: Yes Recent Illness/Hospitalization: No PFSH PFS Medical History Depression Schizophrenia Home Medications Ziprasidone Hcl [Geodon] 40 mg PO BID 07/23/13 [History Last Taken Unknown] benztropine 1 mg PO BID 07/23/13 [History Last Taken Unknown] levothyroxine 50 mcg PO DAILY 07/23/13 [History Last Taken Unknown] multivitamin with folic acid [Thera] 1 tab PO DAILY 07/23/13 [History Last Taken Unknown] Fenofibrate Nanocrystallized [Fenofibrate] 145 mg PO DAILY 12/07/13 [History Last Taken Unknown] warfarin [Coumadin] 7.5 mg PO SUSA 03/18/14 [History Last Taken Unknown] warfarin [Coumadin] 5 mg PO MOTUWETHFR 12/24/14 [History Last Taken Unknown] Allergy/AdvReac Type Severity Reaction Status Date / Time JUST A BUNCH OF Allergy Unknown Uncoded 05/02/21 16:50 PHYCHOTROPIC MEDS. Social History Smoking Status: Current some day smoker tobacco type: cigarettes ROS ROS ED ROS Narrative Denies recent illness. Review of Systems ROS Unobtainable: Denies due to encephalopathy Constitutional Constitutional ED: Denies chills or fever(s) Eyes Eyes: Denies change in vision ENT ENT ED: Denies ear pain or sore throat Cardiovascular Cardiovascular: Denies chest pain or palpitations Respiratory/Chest Respiratory/Chest: Denies cough or dyspnea Gastrointestinal Gastrointestinal: Denies abdominal pain, diarrhea, nausea or vomiting Genitourinary Genitourinary ED: Denies dysuria Musculoskeletal Musculoskeletal: Denies myalgias Integumentary Denies rash Neurologic Neurologic: Denies headache(s) Psychiatric Psychiatric: Denies depression Endocrine Endocrinology: Denies polyuria Hematologic/Lymphatic Hematologic/Lymphatic: Denies easy bruising Allergic/Immunologic Allergic/Immunologic ED: Denies urticaria EXAM Physical Exam Narrative Exam Narrative: Male no acute distress. Vital signs stable afebrile. He does not look septic or toxic. No smell of alcohol. No signs of toxidrome. Unremarkable exam. Const Vital Signs: 05/02/21 16:47 05/02/21 19:08 05/02/21 22:04 Temperature 96.3 F L Temperature Source Temporal Pulse Rate 89 85 71 Respiratory Rate 16 16 16 Blood Pressure 145/104 H 159/94 H 135/72 H Blood Pressure Mean 117 115 93 Pulse Ox 97 95 98 Oxygen Delivery Method Room Air Room Air Positive well nourished and well developed; Negative for obese, cachectic, contractures or unkempt General Appearance ED: well developed and NAD; Negative for unkempt, cachectic, contractures or pallor Nutritional Appearance: Negative for cachectic or obese HEENT Reports moist mucous membranes normocephalic and atraumatic; Negative for trauma or tenderness Eyes PERRL and EOMs intact bilaterally Neck no lymphadenopathy, supple and no JVD General: Negative for tenderness Resp normal respiratory effort and clear to auscultation bilaterally Auscultation: Negative for rales, rhonchi or wheezes Cardio S1 normal heart sound, S2 normal heart sound and no murmurs Rate: regular rate Rhythm: regular rhythm GI non-tender, non-distended and no masses Inspection: Negative for abdominal distention Auscultation: normoactive bowel sounds Palpation: soft; Negative for tender or guarding Back/Spine no CVA tenderness Extremity normal to inspection General Extremety ED: Negative for edema or tenderness General Extremity: Negative for edema Neuro CN's II-XII intact bilaterally Sensorium / Orientation: alert, oriented to person, oriented to place and o riented to time; Negative for lethargic or stuporous Motor Exam: strength 5/5 throughout Psych cooperative, affect normal, speech normal, activity/motor behavior normal, denies homicidal ideation and denies suicidal ideation; Negative for thought process normal or denies hallucinations Appearance: grossly normal; Negative for unkempt Attitude: calm and engaged Skin General Skin Exam: Negative for jaundice or pallor Lesions: no lesions Rashes: no rashes MDM MDM MDM Narrative Medical decision making narrative: Middle-age male history of schizophrenia. Having auditory hallucinations telling him he is locked out of his apartment. He has been wandering the streets the last 2 days. He will undergo an ED mental health exam and screening labs. He is medically cleared at this time. environmental services aide is involved. We will try to get him placed. Repeat exam doing well at 10:30 PM. Awaiting transfer to the psychiatric facility. Lab Data Attestation: I reviewed the patient's lab results. Lab results narrative: CBC White count of 5. Hemoglobin 14. Chemistries unremarkable gap 7. Normal creatinine. Glucose 94. Alcohol negative. Tox screen negative. Labs: Laboratory Results - last 24 hr 05/02/21 05/02/21 05/02/21 17:20 17:20 17:20 WBC 5.9 RBC 4.52 L Hgb 14.1 Hct 44.0 MCV 97.3 H MCH 31.2 MCHC 32.0 RDW Std Deviation 44.8 H RDW Coeff of Yaima 12.4 Plt Count 236 MPV 10.1 Immature Gran % (Auto) 0.300 Neut % (Auto) 72.6 H Lymph % (Auto) 16.0 L [place] % (Auto) 8.9 Eos % (Auto) 1.5 Baso % (Auto) 0.7 Absolute Neuts (auto) 4.3 Absolute Lymphs (auto) 0.94 Nucleated RBC % 0 PT INR Sodium 140 Potassium 3.8 Chloride 107 Carbon Dioxide 26.0 Anion Gap 7 BUN 28 H Creatinine 0.99 Estim Creat Clear Calc 92.54 Est GFR (MDRD) Af Amer 101 Est GFR (MDRD) Non-Af 83 BUN/Creatinine Ratio 28.3 H Glucose 94 Calcium 8.9 Urine Opiates Screen Urine Methadone Screen Ur Barbiturates Screen Ur Phencyclidine Scrn Ur Amphetamines Screen U Methamphetamin-MDMA U Benzodiazepines Scrn Urine Cocaine Screen U Cannabinoids Screen Ur Drug Screen Comment Ethyl Alcohol 8.0 05/02/21 05/02/21 17:20 17:21 WBC RBC Hgb Hct MCV MCH MCHC RDW Std Deviation RDW Coeff of Yaima Plt Count MPV Immature Gran % (Auto) Neut % (Auto) Lymph % (Auto) [place] % (Auto) Eos % (Auto) Baso % (Auto) Absolute Neuts (auto) Absolute Lymphs (auto) Nucleated RBC % PT 17.6 H INR 1.5 Sodium Potassium Chloride Carbon Dioxide Anion Gap BUN Creatinine Estim Creat Clear Calc Est GFR (MDRD) Af Amer Est GFR (MDRD) Non-Af BUN/Creatinine Ratio Glucose Calcium Urine Opiates Screen NEGATIVE Urine Methadone Screen NEGATIVE Ur Barbiturates Screen NEGATIVE Ur Phencyclidine Scrn NEGATIVE Ur Amphetamines Screen NEGATIVE U Methamphetamin-MDMA NEGATIVE U Benzodiazepines Scrn NEGATIVE Urine Cocaine Screen NEGATIVE U Cannabinoids Screen NEGATIVE Ur Drug Screen Comment Ethyl Alcohol Discharge Plan Triage Chief Complaint: Mental Health ED Provider: Philipp Adler Dx/Rx/DC Orders Clinical Impression: Psychosis, History of schizophrenia Prescriptions: No Action levothyroxine 50 MCG tablet 50 mcg PO DAILY RF: 0 benztropine 2 MG tablet 1 mg PO BID RF: 0 multivitamin with folic acid [Thera] 1 TABLET tablet 1 tab PO DAILY RF: 0 Ziprasidone Hcl [Geodon] 80 MG capsule 40 mg PO BID RF: 0 Fenofibrate Nanocrystallized [Fenofibrate] 145 MG tablet 145 mg PO DAILY RF: 0 warfarin [Jantoven] 7.5 MG tablet 7.5 mg PO SUSA RF: 0 warfarin [Jantoven] 5 MG tablet 5 mg PO MOTUWETHFR RF: 0 Primary Care Provider: Jac Bejarano Referrals: Jac Bejarano MD [Primary Care Provider] - Disposition Disposition: Psychiatric Hospital or Unit
[2021-05-02 17:45] LABS: Anion Gap 7 (5-15); BUN 28 mg/dL (7-18); BUN/Creat Ratio 28.3 RATIO (10-20); Calcium,Total 8.9 mg/dL (8.5-10.1); Chloride 107 mmol/L (98-107); Creatinine, Serum 0.99 mg/dL (0.70-1.30); EST Glomerular Filtration Rate 83 mL/min (>60); Est Glom Filt Rate - Afr Amer 101 mL/min (>60); Estimated Creatinine Clearance 92.54 ml/min; Glucose 94 mg/dL (74-106); Potassium 3.8 mmol/L (3.5-5.1); Sodium Level 140 mmol/L (136-145)
[2021-05-02 17:50] LABS: International Normalized Ratio 1.5; Prothrombin Time (Protime)PT. 17.6 SECONDS (11.7-14.9)
[2021-05-02 17:54] LABS: Amphetamine Urine VISTA NEGATIVE (<1000 ng/mL); Barbiturate Urine VISTA NEGATIVE (< 200 ng/mL); Benzodiazepine Urine VISTA NEGATIVE (< 200 ng/mL); Cocaine Urine VISTA NEGATIVE (< 300 ng/mL); Ecstacy Urine VISTA NEGATIVE (< 500 ng/mL); Methadone Urine VISTA NEGATIVE (< 300 ng/mL); PCP Urine VISTA NEGATIVE (< 25 ng/mL); THC Urine VISTA NEGATIVE (< 50 ng/mL); Vista UDS pH Range 6
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
[2021-05-02 19:08] VITALS: BP 159/94; PULSE 85; RESP 16; O2SAT 95
--- NOTE | 2021-05-02 20:21 | EKG12_ITS ---
Test Reason : DYSRHYTHMIA Blood Pressure : / mmHG Vent. Rate : 082 BPM Atrial Rate : 082 BPM P-R Int : 118 ms QRS Dur : 102 ms QT Int : 414 ms P-R-T Axes : 029 012 -16 degrees QTc Int : 483 ms Normal sinus rhythm Prolonged QT Abnormal ECG Confirmed by KAT HAMPTON, ABDELRAHMAN ([id number]), editor at large CIPRIANO VERA ([id number]) on 05/06/2021 9:00:57 AM Referred By: BEATRIZ Confirmed By:ABDELRAHMAN STEPHENS MD
[2021-05-02 22:04] VITALS: BP 135/72; PULSE 71; RESP 16; O2SAT 98
--- NOTE | 2021-05-02 22:04 | CM.ED ---
ZAHRA Note SW called Kenzie Vegas, patient's guardian. She is in agreement with placement. She would like call back as to where patient is placed. ZAHRA made referral to [facility]. ZAHRA called to inquired as to status, repeatedly. At 21:45 this feature writer was advised that they could take patient but not till 10:00am in the morning. ZAHRA called [facility]. They are on waiting list at this time. ZAHRA called [facility]. They are full for psychotic patients. ZAHRA called [facility]. They have beds. ZAHRA will fax them information and referral. ZAHRA faxed them referral information. ZAHRA has updated patient repeatedly that this feature writer is working on placement. Patient has been cooperative. Edyta ZULETA
--- NOTE | 2021-05-02 22:54 | ED.RN ---
CALL[facility] AT 0900 FOR [facility]
--- NOTE | 2021-05-02 22:56 | CM.ED ---
SW Note Per RN Patient was declined at [facility]. SW called [facility] and confirmed that patient will come at 10am tomorrow. The RN will call the MD for MD consent and then call the unit with accepting MD. The admission staff indicated they did not foresee any issue with the admission. However, of note patient has no lifetime psych bed days and has 53 reserve days. SW updated [facility] Lesly and Sonya and they indicated that due to patient's bed days to proceed with [facility]. national secretary arranged transport. SW spoke to patient about where he is going and he said he needs medication to sleep. Staff is updated regarding patient and his plan. No further SW services needed. Plan: [facility] for inpatient psych Edyta ZULETA
[2021-05-03 00:43] VITALS: RESP 16
[2021-05-03] MEDS: Haloperidol Lactate 5 MG/ML Vial IM (00:51)
[2021-05-03 02:00] VITALS: RESP 16
[2021-05-03] MEDS: LORazepam 1 MG Tablet PO (02:55)
[2021-05-03 04:08] VITALS: RESP 16
[2021-05-03 08:43] VITALS: BP 124/74; PULSE 68; RESP 15; O2SAT 97
--- NOTE | 2021-05-03 09:34 | CM.ED ---
Addendum entered by Edyta Jeong 05/03/21 09:43: On this morning this fiction and nonfiction prose writer got voice mail message from Bessy at [facility] at 11:17pm at night stating intake went home and requested a call back. SW called and spoke to intake on this date. They said that patient had arrived from [facility]. ZAHRA advised that question that Bessy had called about must have been resolved and staff at [facility] agreed. No further SW needs at this time. Plan: [facility] Edyta ZULETA Original Note: ZAHRA Note On this date SW confirmed with [facility] that patient had been discharged to [facility] and had left [facility]. SW called patients guardian, Kenzie Ascencion, ([phone]). Kenzie was updated that patient went to [facility] and provided her with phone number. ZAHRA also advised that per [facility] patient has no lifetime psych beds days left and has 50+ reserve days so she is aware of this issue. Kenzie was asked if there was any additional issues or needs and she said no. Plan: Patient went to [facility]. Of note, there were no other available psych beds ([facility], [facility]) or [facility] would not take patient due to bed days available so patient had to stay overnight in ED as [facility] could not accept patient till this date at 10:00am. ZAHRA had staffed with [facility] and they said that this was the best available option and ZAHRA updated MD and RN, site acquisition specialist. No further SW services Edyta ZULETA
== END 2021-05-03 08:56 ==
PROVIDERS: Emergency Provider Emergency Medicine; PCP Internal Medicine
DX: F29 Unspecified psychosis not due to a substance or known physiological condition (principal); F20.9 Schizophrenia, unspecified; F17.210 Nicotine dependence, cigarettes, uncomplicated; Z79.01 Long term (current) use of anticoagulants; Z86.711 Personal history of pulmonary embolism; F32.9 Major depressive disorder, single episode, unspecified
CPT/HCPCS: 36415; 80048; 80307; 82077; 85025; 85610; 87426; 93005; 99285

== ENCOUNTER 2021-07-02 11:36 | Emergency (ER) | payer MEDICARE, SELFPAY ==
[2021-07-02 11:38] VITALS: BP 121/82; PULSE 90; RESP 14; TEMP 36.2; O2SAT 99; BMI 35.2
[2021-07-02 12:15] VITALS: BP 124/83; PULSE 90; RESP 16; O2SAT 97
--- NOTE | 2021-07-02 12:33 | RAD_ITS ---
STUDY: X-RAY - RIGHT KNEE REASON FOR EXAM: Right knee pain. TECHNIQUE: 4 view(s) of the knee. COMPARISON: None. FINDINGS: Normal visualized distal femur. Normal visualized proximal tibia and fibula. Normal proximal tibiofibular articulation. There is mild joint space narrowing of the medial femorotibial compartment. Normal lateral femorotibial compartment. Normal patellofemoral articulation. There is mild vascular calcification. RAD/Knee 4 or More Views IMPRESSION: Mild joint space narrowing of the medial femorotibial compartment. No demonstrated fracture. Electronically Signed: Malik Mcdonald MD at 13:14 EDT Tel , Service support ,
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
== END 2021-07-02 14:13 | disposition home or self-care (01) ==
PROVIDERS: Emergency Provider Emergency Medicine; PCP Internal Medicine
DX: S83.91XA Sprain of unspecified site of right knee, initial encounter (principal); W22.8XXA Striking against or struck by other objects, initial encounter; Y92.9 Unspecified place or not applicable; Y99.9 Unspecified external cause status; F32.9 Major depressive disorder, single episode, unspecified; E03.9 Hypothyroidism, unspecified; F20.9 Schizophrenia, unspecified; F17.210 Nicotine dependence, cigarettes, uncomplicated; Z79.01 Long term (current) use of anticoagulants; Z79.899 Other long term (current) drug therapy
CPT/HCPCS: 73564; 99282

== ENCOUNTER 2022-10-25 14:56 | Emergency (ER) | payer MEDICARE, SELFPAY ==
[2022-10-25 14:57] VITALS: BP 120/87; PULSE 74; RESP 14; TEMP 36; O2SAT 99; BMI 35.9
--- NOTE | 2022-10-25 15:24 | CT_ITS ---
INDICATION: abdominal pain EXAMINATION: CT ABDOMEN AND PELVIS WITH CONTRAST - CT Abdomen And Pelvis W/ Contrast Injection TECHNIQUE: Helically acquired images were obtained of the abdomen and pelvis following IV contrast. A radiation dose optimization technique was used for this scan. IV Contrast dosage and agent: 100 cc [id number] Oral contrast: None. COMPARISON: None. FINDINGS: LOWER CHEST: Lung bases are clear. No cardiomegaly or pericardial effusion. LIVER: Homogeneous. No focal mass. GALLBLADDER AND BILIARY TREE: No calcified gallstones. No gallbladder distension or wall edema. No intra- or extrahepatic biliary ductal dilation. PANCREAS: No focal cystic or solid mass. SPLEEN: Normal size without focal cystic or solid mass. ADRENAL GLANDS: No nodules. KIDNEYS AND URETERS: Normal renal size and position. No hydronephrosis. PERITONEUM: Trace pelvic ascites. No free air. BOWEL: Normal appendix. No stomach or bowel distension. Diffusely increased small bowel fluid contents with mild mesenteric fatty stranding anteriorly. LYMPH NODES: No enlarged mesenteric or retroperitoneal lymph nodes. VESSELS: Aorta is non-dilated. IVC filter in place. URINARY BLADDER: Unremarkable. REPRODUCTIVE ORGANS: No pelvic masses. ABDOMINAL WALL: Fat-containing umbilical hernia. BONES: No acute or aggressive abnormality. CT/Abdomen/Pelvis W IV Cont ONLY IMPRESSION: Nonspecific small bowel changes which may indicate enteritis in the appropriate clinical setting. Electronically Signed: Mc Krause MD at 16:37 EST ,
--- NOTE | 2022-10-25 15:25 | EKG12_ITS ---
Test Reason : ABDOMINAL PAIN Blood Pressure : / mmHG Vent. Rate : 068 BPM Atrial Rate : 068 BPM P-R Int : 142 ms QRS Dur : 102 ms QT Int : 408 ms P-R-T Axes : 028 012 003 degrees QTc Int : 433 ms Normal sinus rhythm Normal ECG Confirmed by PEGGY HAMPTON, FAMILIA ([id number]), content editor CIPRIANO VERA ([id number]) on 10/26/2022 10:16:20 AM Referred By: Confirmed By:FAMILIA WOODS MD
--- NOTE | 2022-10-25 15:26 | ED.VIS.GI ---
HPI HPI - GI History of Present Illness Chief Complaint: Abd Pain Detail of Chief Complaint: Abdominal pain x3 days Informant: patient Abdominal Pain/Flank Pain Current Severity: 4/10 Maximum Severity: 8/10 Narrative Narrative: Patient presents to the emergency department with complaint of abdominal pain that started 3 days ago. Pain has been continuous. Patient denies vomiting or diarrhea. Patient denies fever or chills or sweats. He denies blood in the stool or black tarry stool. Pain is made worse with eating. Currently rates pain a 4 out of 10 and gets up to an 8 out of 10 at times. He is not had pain like this before. Has had no prior abdominal surgeries. Patient is on Coumadin for history of pulmonary emboli. Patient thinks that maybe he got food poisoning however he has not eaten any unusual or undercooked foods. Patient denies recent travel. Patient denies chest pain or shortness of breath. Prior similar symptoms: No PFSH PFSH Medical History Depression Hypothyroidism Schizophrenia Smoker Home Medications Ziprasidone Hcl [Geodon] 40 mg PO BID 07/23/13 [History Last Taken Unknown] benztropine 2 mg tablet 1 mg PO BID 07/23/13 [History Last Taken Unknown] levothyroxine 50 mcg tablet 75 mcg PO DAILY 07/23/13 [History Last Taken Unknown] multivitamin with folic acid 400 mcg tablet (Thera) 1 tab PO DAILY 07/23/13 [History Last Taken Unknown] Fenofibrate Nanocrystallized [Fenofibrate] 145 mg PO DAILY 12/07/13 [History Last Taken Unknown] warfarin 7.5 mg tablet (Jantoven) 7.5 mg PO SUSA 03/18/14 [History Last Taken Unknown] warfarin 5 mg tablet (Jantoven) 5 mg PO MOTUWETHFR 12/24/14 [History Last Taken Unknown] Remeron 1 tab PO/SL QHS 07/02/21 [History Last Taken Unknown] lansoprazole 30 mg capsule,delayed release (Prevacid) 30 mg PO DAILY #14 caps 10/25/22 [Rx Last Taken Unknown] Allergy/AdvReac Type Severity Reaction Status Date / Time JUST A BUNCH OF Allergy Unknown Uncoded 10/25/22 14:57 PHYCHOTROPIC MEDS. Social History Smoking Status: Current every day smoker tobacco type: cigarettes ROS ROS ED Review of Systems ROS Unobtainable: other Constitutional Constitutional ED: Reports lethargy; Denies chills, fever(s), sweats or weight loss Eyes Eyes: Denies blurry vision, change in vision or diplopia ENT ENT ED: Denies rhinorrhea or sore throat Cardiovascular Cardiovascular: Denies chest pain, orthopnea or racing heartbeat Respiratory/Chest Respiratory/Chest: Denies cough, dyspnea, dyspnea on exertion, orthopnea or sputum Gastrointestinal Gastrointestinal: Reports abdominal pain; Denies diarrhea, nausea or vomiting Genitourinary Genitourinary ED: Denies dysuria, hematuria or urinary frequency Musculoskeletal Musculoskeletal: Denies arthralgias, back pain, myalgias or neck pain Integumentary Denies abscess, Abrasions or rash Neurologic Neurologic: Denies headache(s) or weakness Psychiatric Psychiatric: Denies anxiety, depression or suicidal thoughts Endocrine Endocrinology: Denies polydipsia, polyphagia or polyuria Hematologic/Lymphatic Hematologic/Lymphatic: Denies easy bleeding, easy bruising or lymphadenopathy Allergic/Immunologic Allergic/Immunologic ED: Denies mouth swelling, tongue swelling or urticaria EXAM Physical Exam Const Vital Signs: 10/25/22 14:57 Temperature 96.8 F L Temperature Source Temporal Pulse Rate 74 Respiratory Rate 14 Blood Pressure 120/87 H Blood Pressure Mean 98 Pulse Ox 99 Oxygen Delivery Method Room Air Positive well nourished and well developed General Appearance ED: well developed and NAD HEENT Reports TM's clear and moist mucous membranes normocephalic and atraumatic; Negative for trauma or tenderness Tympanic Membrane ED: Yes TM's clear Eyes PERRL and EOMs intact bilaterally General Eye ED: Negative for pale conjunctiva or scleral icterus Neck no lymphadenopathy, supple and no JVD General: Negative for tenderness Chest Wall inspection of chest normal and palpation of chest normal Chest: Negative for tenderness Resp normal respiratory effort and clear to auscultation bilaterally Effort and Inspection: Negative for respiratory distress or pain with movement Auscultation: Negative for rhonchi, wheezes or diminished lung sounds Cardio regular rate, regular rhythm, S1 normal heart sound, S2 normal heart sound and no murmurs Peripheral Pulses: pulses 2+ throughout GI normal to inspection, nondistended, normoactive bowel sounds, soft to palpation, non-distended and no masses GI Narrative: Abdomen is soft and just mildly tender throughout. There is no rebound, rigidity, or peritoneal signs. Patient does have a slightly erythematous rash inferior to the umbilicus with some scaling that may be a reaction to nickel and patient's belt. Back/Spine no CVA tenderness and no thoracic nor lumbar tenderness Extremity normal to inspection General Extremety ED: Negative for edema General Extremity: Negative for edema Neuro oriented x3, CN's II-XII intact bilaterally, no sensory deficits noted and gait normal Sensorium / Orientation: awake, alert, oriented to person, oriented to place and oriented to time Motor Exam: strength 5/5 throughout and strength abnormal Psych mental status grossly normal Skin no rashes or lesions noted and no wounds MDM MDM MDM Narrative Medical decision making narrative: IV line established on arrival. Patient denies anything for pain at this time. CBC with differential obtained was normal. Chemistries were normal. Lactate was normal. LFTs and lipase were normal. Patient also because of the upper abdomen pain had an EKG to rule out acute coronary syndrome or cardiac etiology for his discomfort and this showed a sinus rhythm with a ventricular rate of 68 bpm with no acute ST segment changes. His troponin was normal. CT scan of the abdomen pelvis with IV contrast obtained was interpreted by radiology as nonspecific increased small bowel fluid which could be consistent with enteritis in the proper clinical setting. Patient has no signs or symptoms of enteritis. At this point etiology of his abdominal pain is unclear. He does not want thing for pain for home. Patient has had remote history of gastritis at the age of 30. I will start him on Prevacid daily for 2 weeks. Patient will be given referral to gastroenterology for follow-up. He is advised to return if worsening pain, fever, vomiting, or condition should worsen anyway. Lab Data Attestation: I reviewed the patient's lab results. Labs: Laboratory Results - last 24 hr 10/25/22 10/25/22 10/25/22 15:33 15:33 15:33 WBC 5.8 RBC 4.41 L Hgb 13.8 Hct 41.9 MCV 95.0 H MCH 31.3 MCHC 32.9 RDW Std Deviation 42.3 RDW Coeff of Yaima 12.1 Plt Count 204 MPV 10.6 Immature Gran % (Auto) 0.200 Neut % (Auto) 73.3 H Lymph % (Auto) 15.6 L [place] % (Auto) 8.8 Eos % (Auto) 1.6 Baso % (Auto) 0.5 Absolute Neuts (auto) 4.2 Absolute Lymphs (auto) 0.90 Nucleated RBC % 0 PT INR Sodium 140 Potassium 3.9 Chloride 110 H Carbon Dioxide 23.0 Anion Gap 7 BUN 11 Creatinine 0.98 Estim Creat Clear Calc 91.28 Est GFR (MDRD) Af Amer 102 Est GFR (MDRD) Non-Af 84 BUN/Creatinine Ratio 11.3 Glucose 97 Lactic Acid 0.7 Calcium 8.8 Total Bilirubin 0.50 AST 26 ALT 24 Alkaline Phosphatase 54 Troponin I High Sens 22 Total Protein 6.7 Albumin 3.8 Globulin 2.9 Albumin/Globulin Ratio 1.3 Lipase 69 L 10/25/22 16:02 WBC RBC Hgb Hct MCV MCH MCHC RDW Std Deviation RDW Coeff of Yaima Plt Count MPV Immature Gran % (Auto) Neut % (Auto) Lymph % (Auto) [place] % (Auto) Eos % (Auto) Baso % (Auto) Absolute Neuts (auto) Absolute Lymphs (auto) Nucleated RBC % PT 26.6 H INR 2.5 Sodium Potassium Chloride Carbon Dioxide Anion Gap BUN Creatinine Estim Creat Clear Calc Est GFR (MDRD) Af Amer Est GFR (MDRD) Non-Af BUN/Creatinine Ratio Glucose Lactic Acid Calcium Total Bilirubin AST ALT Alkaline Phosphatase Troponin I High Sens Total Protein Albumin Globulin Albumin/Globulin Ratio Lipase Radiography Diagnostic Testing: Clinical Impression(s) from Imaging Studies Abdomen/Pelvis CT 10/25/22 15:24 IMPRESSION: Nonspecific small bowel changes which may indicate enteritis in the appropriate clinical setting. Electronically Signed: Mc Krause MD at 16:37 EST , EKG Initial EKG: Attestation: I personally reviewed and interpreted this EKG as follows: Comments: Sinus rhythm with a ventricular rate of 68 bpm with no acute ST segment changes Discharge Plan Triage Chief Complaint: Abd Pain ED Provider: Kiara Deras Dx/Rx/DC Orders Clinical Impression: Abdominal pain Instructions: ED Abdominal Pain Unkn Cause Male... Prescriptions: New lansoprazole [Prevacid] 30 mg capsule,delayed release(DR/EC) 30 mg PO DAILY Qty: 14 0RF No Action levothyroxine 50 MCG tablet 75 mcg PO DAILY benztropine 2 MG tablet 1 mg PO BID multivitamin with folic acid [Thera] 1 TABLET tablet 1 tab PO DAILY Ziprasidone Hcl [Geodon] 80 MG capsule 40 mg PO BID Fenofibrate Nanocrystallized [Fenofibrate] 145 MG tablet 145 mg PO DAILY Label Comments: warfarin [Jantoven] 7.5 MG tablet 7.5 mg PO SUSA warfarin [Jantoven] 5 MG tablet 5 mg PO MOTUWETHFR Remeron 1 tab PO/SL [facility] Primary Care Provider: Jac Bejarano Referrals: Carl Gregory DO [Med Staff - Active Staff] - 3-5 Days Jac Bejarano MD [Primary Care Provider] - Disposition Disposition: Home, Self Care
[2022-10-25] MEDS: 0.9% Normal Saline 1,000 ML 125 ML IV (15:36)
--- NOTE | 2022-10-25 15:38 | NURSING ---
this RN attempted to contact pt's legal guardian Kenzie Vegas for consent. Left message to please call ED.
[2022-10-25 15:41] LABS: Absolute Neutrophil Count 4.2 X10^3/uL (2.0-7.7); Basophil# 0.03 X10^3/uL; Basophil% 0.5 % (0-1); Eosinophil# 0.09 X10^3/uL; Eosinophils% 1.6 % (0-5); Hematocrit 41.9 % (40-54); Hemoglobin 13.8 g/dL (13.0-16.5); Lymphocyte % 15.6 % (19-41); Mean Corp Hgb Conc 32.9 g/dL (32-36); Mean Corpuscular Hgb 31.3 pg (27.0-32.0); Mean Platelet Vol. 10.6 fl (6.2-12.0); Monocyte# 0.51 X10^3/uL; Monocyte% 8.8 % (0-10); NRBC Flagged by Analyzer 0 % (0-5); Neutrophil # 4.23 X10^3/uL (2.7-7.7); Neutrophil % 73.3 % (47-70); Platelet Count 204 K/mm3 (150-450); RBC Distribution Width CV 12.1 % (11.6-14.6); RBC Distribution Width SD 42.3 fl (35.1-43.9); Red Blood Count 4.41 M/mm3 (4.6-6.2); White Blood Count 5.8 K/mm3 (4.4-11.0)
[2022-10-25 15:58] LABS: ALB/GLOB Ratio 1.3 RATIO (0.9-2.4); AST(SGOT) 26 U/L (15-37); Alanine Aminotransfer ALT/SGPT 24 U/L (16-61); Albumin, Serum 3.8 g/dL (3.2-5.0); Alkaline Phosphatase 54 U/L (45-117); Anion Gap 7 (5-15); BUN 11 mg/dL (7-18); BUN/Creat Ratio 11.3 RATIO (10-20); Calcium,Total 8.8 mg/dL (8.5-10.1); Chloride 110 mmol/L (98-107); Creatinine, Serum 0.98 mg/dL (0.70-1.30); EST Glomerular Filtration Rate 84 mL/min (>60); Est Glom Filt Rate - Afr Amer 102 mL/min (>60); Estimated Creatinine Clearance 91.28 ml/min; Globulin 2.9 g/dL (2.2-4.2); Glucose 97 mg/dL (74-106); Lipase 69 U/L (73-393); Potassium 3.9 mmol/L (3.5-5.1); Protein, Total 6.7 g/dL (6.4-8.2); Sodium Level 140 mmol/L (136-145); Troponin-I HS 22 pg/mL (3.0-78.0)
--- NOTE | 2022-10-25 16:02 | NURSING ---
Kenzie returned called and gave consent to treat, verified with Trino Lau
[2022-10-25 16:12] LABS: Lactic Acid 0.7 mmol/L (0.4-1.9)
[2022-10-25 16:20] LABS: International Normalized Ratio 2.5; Prothrombin Time (Protime)PT. 26.6 SECONDS (11.7-14.9)
== END 2022-10-25 17:33 | disposition home or self-care (01) ==
PROVIDERS: Emergency Provider Emergency Medicine; PCP Internal Medicine; Visit Provider Emergency Medicine
DX: R10.9 Unspecified abdominal pain (principal); F20.9 Schizophrenia, unspecified; F17.210 Nicotine dependence, cigarettes, uncomplicated; E03.9 Hypothyroidism, unspecified; F32.A Depression, unspecified; Z79.01 Long term (current) use of anticoagulants; Z86.711 Personal history of pulmonary embolism
CPT/HCPCS: 74177; 80053; 83605; 83690; 84484; 85025; 85610; 93005; 96360; 96361; 99282; J7030; Q9967; A4216

== ENCOUNTER 2022-11-01 10:21 | Emergency (ER) | payer MEDICARE, SELFPAY ==
[2022-11-01 10:22] VITALS: BP 138/78; PULSE 84; RESP 16; TEMP 36.6; O2SAT 99; BMI 35.2
--- NOTE | 2022-11-01 10:43 | EKG12_ITS ---
Test Reason : RIB PAIN Blood Pressure : / mmHG Vent. Rate : 076 BPM Atrial Rate : 076 BPM P-R Int : 124 ms QRS Dur : 092 ms QT Int : 406 ms P-R-T Axes : 045 044 026 degrees QTc Int : 456 ms Normal sinus rhythm Normal ECG Confirmed by PEGGY HAMPTON, FAMILIA ([id number]), editor map CIPRIANO VERA ([id number]) on 11/02/2022 1:08:11 PM Referred By: Confirmed By:FAMILIA WOODS MD
--- NOTE | 2022-11-01 10:43 | RAD_ITS ---
HISTORY: pain TECHNIQUE: XR Abdomen Series W/ Chest 1 View. COMPARISON: CT 10/25/2022. FINDINGS: --Chest: CARDIOMEDIASTINAL BORDERS: Cardiac silhouette and mediastinal contour within normal limits in size. LUNGS: Mild linear bibasilar opacities. PLEURA: No pneumothorax or significant pleural effusion. BONES: Mild degenerative change. --Abdomen: BOWEL GAS PATTERN: No dilated bowel loops identified. Moderate stool in the right colon. Gaseous distention of colon in the midabdomen. FREE AIR: None seen on upright view. CALCIFICATIONS: Pelvic phleboliths observed. BONES AND SOFT TISSUES: IVC filter noted. RAD/Acute Abdomen Inc Chest IMPRESSION: Mild atelectasis in the lung bases. Moderate stool in the right colon. Electronically Signed: Marina Dempsey MD at 12:21 EST ,
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
[2022-11-01] MEDS: Ondansetron 4 MG/2 ML Vial IV (10:55)
[2022-11-01] MEDS: Dicyclomine 20 MG/2 ML Vial IM (10:55)
[2022-11-01 11:01] LABS: Absolute Lymphocyte Count 0.68 X10^3/uL (0.83-4.51); Absolute Neutrophil Count 4.4 X10^3/uL (2.0-7.7); Basophil# 0.03 X10^3/uL; Basophil% 0.5 % (0-1); Eosinophil# 0.07 X10^3/uL; Eosinophils% 1.2 % (0-5); Hematocrit 38.8 % (40-54); Hemoglobin 13.1 g/dL (13.0-16.5); Lymphocyte # 0.68 X10^3/ul (0.83-4.51); Lymphocyte % 12.1 % (19-41); Mean Corp Hgb Conc 33.8 g/dL (32-36); Mean Corpuscular Hgb 31.6 pg (27.0-32.0); Mean Corpuscular Volume 93.7 fL (80-94); Mean Platelet Vol. 10.2 fl (6.2-12.0); Monocyte# 0.43 X10^3/uL; Monocyte% 7.7 % (0-10); NRBC Flagged by Analyzer 0 % (0-5); Neutrophil # 4.39 X10^3/uL (2.7-7.7); Neutrophil % 78.1 % (47-70); Platelet Count 254 K/mm3 (150-450); RBC Distribution Width CV 12.1 % (11.6-14.6); RBC Distribution Width SD 41.9 fl (35.1-43.9); Red Blood Count 4.14 M/mm3 (4.6-6.2); White Blood Count 5.6 K/mm3 (4.4-11.0)
[2022-11-01 11:21] LABS: AST(SGOT) 16 U/L (15-37); Alanine Aminotransfer ALT/SGPT 16 U/L (16-61); Albumin, Serum 3.6 g/dL (3.2-5.0); Alkaline Phosphatase 49 U/L (45-117); Anion Gap 9 (5-15); BUN 14 mg/dL (7-18); BUN/Creat Ratio 13.3 RATIO (10-20); Calcium,Total 8.9 mg/dL (8.5-10.1); Chloride 108 mmol/L (98-107); Creatinine, Serum 1.05 mg/dL (0.70-1.30); EST Glomerular Filtration Rate 77 mL/min (>60); Est Glom Filt Rate - Afr Amer 94 mL/min (>60); Globulin 3.2 g/dL (2.2-4.2); Glucose 118 mg/dL (74-106); Lipase 95 U/L (73-393); Potassium 3.9 mmol/L (3.5-5.1); Protein, Total 6.8 g/dL (6.4-8.2); Sodium Level 140 mmol/L (136-145); Troponin-I HS 16 pg/mL (3.0-78.0)
[2022-11-01 11:22] LABS: Alcohol, Blood (Medical)-Serum < 3.0 mg/dL
[2022-11-01 11:52] LABS: Bacteria 0 SEEN /hpf (None Seen); Mucous, Urine 0 SEEN /hpf (<or=2+); Red Blood Cells-Urine 0 SEEN /hpf (0-5); Squamous Epithelial Cells - UA 0 SEEN /hpf (0-5); White Blood Cells 0 SEEN /hpf (0-5)
[2022-11-01 11:54] LABS: Color, Urine Yellow (Yellow); Glucose, Dipstick Normal (Normal); Ketone-Dipstick 5 mg/dl (Negative); Leukocyte Esterase-Dipstick 25 /ul (Negative); Nitrite-Dipstick Negative (Negative); Occult Blood-Urine Negative /ul (Negative); Protein-Dipstick 15 mg/dl (Negative); Urine Bilirubin Dipstick Negative (Negative); Urine Clarity Clear (Clear); Urine Urobilinogen 4 mg/dl (Normal)
[2022-11-01 12:05] LABS: Amphetamine Urine VISTA NEGATIVE (<1000 ng/mL); Barbiturate Urine VISTA NEGATIVE (< 200 ng/mL); Benzodiazepine Urine VISTA NEGATIVE (< 200 ng/mL); Cocaine Urine VISTA NEGATIVE (< 300 ng/mL); Ecstacy Urine VISTA NEGATIVE (< 500 ng/mL); Methadone Urine VISTA NEGATIVE (< 300 ng/mL); PCP Urine VISTA NEGATIVE (< 25 ng/mL); THC Urine VISTA NEGATIVE (< 50 ng/mL); Vista UDS pH Range 7
[2022-11-01 12:51] VITALS: BP 105/67; PULSE 71
== END 2022-11-01 12:51 | disposition home or self-care (01) ==
PROVIDERS: Emergency Provider Emergency Medicine; PCP Internal Medicine; Visit Provider Emergency Medicine
DX: R10.9 Unspecified abdominal pain (principal); F20.9 Schizophrenia, unspecified; R11.0 Nausea; F17.210 Nicotine dependence, cigarettes, uncomplicated; E03.9 Hypothyroidism, unspecified; F32.A Depression, unspecified; Z86.711 Personal history of pulmonary embolism; Z79.899 Other long term (current) drug therapy
CPT/HCPCS: 74022; 80048; 80076; 80307; 81001; 82077; 83690; 84484; 85025; 93005; 99283; A4216; J2405

== ENCOUNTER 2023-11-10 21:56 | Emergency (ER) | payer MEDICARE, SELFPAY ==
[2023-11-10 21:57] VITALS: BP 136/91; PULSE 93; RESP 18; TEMP 36.4; O2SAT 95; BMI 35.4
--- NOTE | 2023-11-10 22:28 | ED.RN ---
attempt to call Kenzie to get permission to treat, --went to a disconnected [facility] number.
--- NOTE | 2023-11-10 22:33 | CT_ITS ---
EXAM: CT HEAD WITHOUT INTRAVENOUS CONTRAST CLINICAL INDICATION: head injury TECHNIQUE: Multiple axial images were obtained of the head without intravenous contrast. This CT exam was performed using one or more of the following dose reduction techniques: automated exposure control, adjustment of the mA and/or kV according to patient size, and/or use of iterative reconstruction technique. COMPARISON: 12/29/2014 FINDINGS: BRAIN AND EXTRA-AXIAL SPACES: Unremarkable. No intra- or extra-axial hemorrhage. No evidence of acute infarct. No intracranial mass or mass effect. There is preservation of the mina/white matter interface. Posterior fossa structures are unremarkable. Ventricles are appropriate for age. No hydrocephalus. Basal cisterns are patent. BONES/JOINTS: Unremarkable. No discrete lytic or blastic abnormalities. SINUSES: Unremarkable as visualized. Clear. MASTOID AIR CELLS: Unremarkable. Clear. ORBITS: Visualized globes, extraocular muscles, optic nerves and retrobulbar fat appear unremarkable. CT/Brain/Head without Contrast IMPRESSION: Negative head/brain CT without intravenous contrast. There has been no significant change from the reference exam. Electronically Signed: Ronald Barron MD at 23:14 EST ,
--- NOTE | 2023-11-10 22:42 | RAD_ITS ---
EXAM: XR RIGHT RIBS AND AP CHEST, 3 OR MORE VIEWS CLINICAL INDICATION: pain TECHNIQUE: Frontal and oblique views of the right ribs and frontal view of the chest. COMPARISON: No relevant prior studies available. FINDINGS: LUNGS AND PLEURAL SPACES: Unremarkable. No consolidation or edema. No pneumothorax. No effusion. HEART: Unremarkable. Cardiac silhouette not enlarged. MEDIASTINUM: Central airways and mediastinal contour are unremarkable. BONES/JOINTS: Unremarkable. No evidence of displaced rib fractures. RAD/Ribs Uni Min 3V w/PA Chest IMPRESSION: Negative chest and right ribs series. Electronically Signed: Ronald Barron MD at 23:11 EST ,
--- NOTE | 2023-11-10 23:32 | EX.ED.DYSGE1 ---
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 He states that roughly 3 to 4 hours ago he was stepping backwards off the bus when he tripped and lost his balance falling and hitting his right chest. He denies striking his head or any loss of consciousness. He states he had pain to the right chest wall since that time and is concerned he may have broke a rib . He denies any headache change in vision nausea or vomiting. He denies any hematuria. As he has concern for injured rib he comes in for evaluation. PFSH PFSH Medical History Depression Hypothyroidism Pulmonary embolism Schizophrenia Smoker Home Medications Ziprasidone Hcl [Geodon] 40 mg PO BID 07/23/13 [History Last Taken Unknown] benztropine 2 mg tablet 1 mg PO BID 07/23/13 [History Last Taken Unknown] levothyroxine 50 mcg tablet 75 mcg PO DAILY 07/23/13 [History Last Taken Unknown] multivitamin with folic acid 400 mcg tablet (Thera) 1 tab PO DAILY 07/23/13 [History Last Taken Unknown] Fenofibrate Nanocrystallized [Fenofibrate] 145 mg PO DAILY 12/07/13 [History Last Taken Unknown] warfarin 7.5 mg tablet (Jantoven) 7.5 mg PO SUSA 03/18/14 [History Last Taken Unknown] warfarin 5 mg tablet (Jantoven) 5 mg PO MOTUWETHFR 12/24/14 [History Last Taken Unknown] Remeron 1 tab PO/SL QHS 07/02/21 [History Last Taken Unknown] lansoprazole 30 mg capsule,delayed release (Prevacid) 30 mg PO DAILY #14 caps 10/25/22 [Rx Last Taken Unknown] dicyclomine 10 mg capsule 20 mg (2 x 10 mg) PO TIDAC PRN abd pain #20 CAPSULES 11/01/22 [Rx Last Taken Unknown] omeprazole magnesium 20 mg tablet,delayed release (Prilosec OTC) 20 mg PO DAILY 6 weeks #42 tabs 11/01/22 [Rx Last Taken Unknown] ondansetron 4 mg disintegrating tablet 4 mg PO Q8H PRN PRN Nausea #10 tabs 11/01/22 [Rx Last Taken Unknown] oxycodone-acetaminophen 5 mg-325 mg tablet (Percocet) 1 tab PO Q6H PRN pain 3 days #12 tabs 11/10/23 [Rx Last Taken Unknown] Allergy/AdvReac Type Severity Reaction Status Date / Time No Known Allergies Allergy Verified 11/10/23 21:59 Social History Smoking Status: Current every day smoker tobacco type: cigarettes ROS ROS ED Constitutional Constitutional ED: Denies chills or fever(s) Eyes Eyes: Denies change in vision ENT ENT ED: Denies sore throat Cardiovascular Cardiovascular: Reports chest pain; Denies palpitations or racing heartbeat Respiratory/Chest Respiratory/Chest: Denies cough or dyspnea Gastrointestinal Gastrointestinal: Denies abdominal pain, diarrhea, nausea or vomiting Genitourinary Genitourinary ED: Denies dysuria or hematuria Musculoskeletal Musculoskeletal: Reports other Details: Positive right rib pain ; Denies back pain, myalgias or neck pain Integumentary Denies Abrasions or rash Neurologic Neurologic: Denies headache(s) Hematologic/Lymphatic Hematologic/Lymphatic: Reports easy bleeding and easy bruising EXAM Physical Exam Const Vital Signs: 11/10/23 21:57 11/10/23 23:51 Temperature 97.6 F L 97.9 F Temperature Source Temporal Pulse Rate 93 87 Respiratory Rate 18 18 Blood Pressure 136/91 H 132/60 H Blood Pressure Mean 106 84 Pulse Ox 95 96 Oxygen Delivery Method Room Air Positive well nourished and well developed General Appearance ED: well developed; Negative for pallor HEENT HEENT Narrative: Normocephalic atraumatic No signs of depressed or basilar skull fracture Eyes PERRL and EOMs intact bilaterally Eyes Narrative: No hyphema Neck supple Neck Narrative: No bony deformity or step-off of the cervical spine no midline pain on palpation Chest Wall Chest Narrative: There is reproducible right anterior chest wall pain with palpation rib region 6-9 without obvious bony deformity or crepitance. Resp normal respiratory effort and clear to auscultation bilaterally Cardio regular rate and regular rhythm GI normal to inspection, nondistended, normoactive bowel sounds, non-tender, non-distended and no masses GI Narrative: No voluntary guarding or rigidity or pulsatile mass No abrasions or ecchymosis noted Auscultation: normoactive bowel sounds Palpation: soft Back/Spine Back/Spine Narrative: No bony deformity or step-off of the thoracic or lumbar spine no midline pain on palpation Extremity normal to inspection Extremity Narrative: Pelvis is stable there is no shortening or external rotation of either lower extremity Patient can move both arms and legs without difficulty Neuro oriented x3 and CN's II-XII intact bilaterally Sensorium / Orientation: alert Motor Exam: strength 5/5 throughout Psych Psych Narrative: Patient has a flat affect Skin no rashes or lesions noted Skin Narrative: No abrasions or ecchymosis noted General Skin Exam: Negative for jaundice or pallor MDM MDM MDM Narrative Medical decision making narrative: Patient presented to the ER with stable vitals and reported a mechanical fall so there is no need for cardiac or syncope workup. Differential diagnosis is for rib contusion versus rib fracture versus pneumothorax versus pulmonary contusion versus traumatic head injury/subdural or epidural hematoma. Secondary to this a CT of the head was obtained as well as right rib series with 1 view chest. Imaging revealed no signs of trauma. On reevaluation he is resting comfortably his vitals and exam remain normal and therefore as workup indicates this is most likely contusion and there is no true underlying traumatic findings such as brain bleed or pneumothorax he can otherwise be discharged home History & Record Review Discussion w/independent historian: Patient Radiography Diagnostic Testing: Clinical Impression(s) from Imaging Studies Brain CT 11/10/23 22:33 IMPRESSION: Negative head/brain CT without intravenous contrast. There has been no significant change from the reference exam. Electronically Signed: Ronald Barron MD at 23:14 EST , Ribs w/Chest X-Ray 11/10/23 22:42 IMPRESSION: Negative chest and right ribs series. Electronically Signed: Ronald Barron MD at 23:11 EST , Right rib series with 1 view chest as interpreted by the emergency medicine physician reveals no acute rib fracture pneumothorax or pleural effusion Discharge Plan Triage Chief Complaint: Chest Other ED Provider: Tj Godwin Dx/Rx/DC Orders Clinical Impression: Contusion of rib on right side, Current use of superintendent container terminal anticoagulation, Schizophrenia Instructions: ED Bruise, Rib, ED Rib Contusion or Minor Fracture Prescriptions: New oxycodone-acetaminophen [Percocet] 5-325 mg tablet 1 tab PO Q6H PRN (Reason: pain) 3 Days Qty: 12 0RF No Action levothyroxine 50 MCG tablet 75 mcg PO DAILY benztropine 2 MG tablet 1 mg PO BID multivitamin with folic acid [Thera] 1 TABLET tablet 1 tab PO DAILY Ziprasidone Hcl [Geodon] 80 MG capsule 40 mg PO BID Fenofibrate Nanocrystallized [Fenofibrate] 145 MG tablet 145 mg PO DAILY Patient Comments: warfarin [Jantoven] 7.5 MG tablet 7.5 mg PO SUSA warfarin [Jantoven] 5 MG tablet 5 mg PO MOTUWETHFR Remeron 1 tab PO/SL QHS lansoprazole [Prevacid] 30 mg capsule,delayed release(DR/EC) 30 mg PO DAILY Qty: 14 0RF omeprazole magnesium [Prilosec OTC] 20 mg tablet,delayed release (DR/EC) 20 mg PO DAILY 42 Days Qty: 42 0RF dicyclomine 10 mg capsule 20 mg PO TIDAC PRN (Reason: abd pain) Qty: 20 0RF ondansetron 4 mg tablet,disintegrating 4 mg PO Q8H PRN PRN (Reason: Nausea) Qty: 10 0RF Primary Care Provider: Jac Bejarano Referrals: Jca Bejarano MD [Primary Care Provider] - Activity Restrictions/Additional Instructions: Your imaging showed no signs of fracture or hole within your lung indicating you have bruised ribs. This will take a few weeks to heal on average. You can use [id number] medication such as topical lidocaine patches Biofreeze or IcyHot to help with pain. If you have any further concerns or worsening symptoms please return for repeat evaluation Disposition Disposition: Home, Self Care Discharge Date/Time: 11/10/23 23:52
[2023-11-10 23:51] VITALS: BP 132/60; PULSE 87; RESP 18; TEMP 36.6; O2SAT 96
== END 2023-11-10 23:52 | disposition home or self-care (01) ==
PROVIDERS: Emergency Provider Emergency Medicine; PCP Internal Medicine; Visit Provider Emergency Medicine
DX: S20.211A Contusion of right front wall of thorax, initial encounter (principal); F20.9 Schizophrenia, unspecified; F17.210 Nicotine dependence, cigarettes, uncomplicated; Z79.01 Long term (current) use of anticoagulants; E03.9 Hypothyroidism, unspecified; F32.A Depression, unspecified; Z86.711 Personal history of pulmonary embolism; W17.89XA Other fall from one level to another, initial encounter
CPT/HCPCS: 70450; 71101; 99283

== ENCOUNTER 2023-11-14 19:42 | Observation (INO) | payer MEDICARE, MEDICAID, SELFPAY ==
[2023-11-14 19:43] VITALS: BP 145/84; PULSE 95; RESP 20; TEMP 36.6; O2SAT 99; BMI 35.3
--- NOTE | 2023-11-14 20:00 | EDS_ITS ---
HPI <CELIA Buitrago - Last Filed: 11/14/23 21:53> History of Present Illness Chief Complaint: Other, Pain/Inj Narrative Narrative: 58-year-old male with PMH of schizophrenia, DVT/PE on Coumadin had a mechanical fall on 11/10 injuring his right rib cage. He was seen in the ED that day and had negative rib x-rays. He was prescribed Percocet and is taking every 6 hours but states the rib pain when trying to move or get out of bed is unbearable. He has no shortness of breath. PFSH <CELIA Buitrago - Last Filed: 11/14/23 21:53> PFSH Medical History Depression Hypothyroidism Pulmonary embolism Schizophrenia Smoker Home Medications benztropine 2 mg tablet 1 mg PO BID 07/23/13 [History Last Taken Unknown] Fenofibrate Nanocrystallized [Fenofibrate] 145 mg PO DAILY 12/07/13 [History Last Taken Unknown] warfarin 7.5 mg tablet (Jantoven) 7.5 mg PO SUFRSA 03/18/14 [History Last Taken Unknown] warfarin 5 mg tablet (Jantoven) 5 mg PO MOTUWETH 12/24/14 [History Last Taken Unknown] oxycodone-acetaminophen 5 mg-325 mg tablet (Percocet) 1 tab PO Q6H PRN pain 3 days #12 tabs 11/10/23 [Rx Last Taken Unknown] levothyroxine 88 mcg tablet 88 mcg PO DAILY 11/14/23 [History Last Taken Unknown] mirtazapine 45 mg tablet 45 mg PO DAILY 11/14/23 [History Last Taken Unknown] multivitamin (Daily Multi-Vitamin tablet) 1 tab PO DAILY 11/14/23 [History Last Taken Unknown] Allergy/AdvReac Type Severity Reaction Status Date / Time No Known Allergies Allergy Verified 11/14/23 19:43 Social History Smoking Status: Current every day smoker tobacco type: cigarettes ROS <CELIA Buitrago - Last Filed: 11/14/23 21:53> ROS ED ROS Narrative CVS: Negative for chest pain. Respiratory: Negative for shortness of breath. Skin: Negative for wound. EXAM <CELIA Buitrago - Last Filed: 11/14/23 21:53> Physical Exam Narrative Exam Narrative: CONST: Patient sitting in no acute distress. EYES: Normal inspection. NECK: Normal inspection. RESP: No respiratory distress, CTAB. No bruising, no reproducible tenderness of the ribs. CVS: Regular rate and rhythm, no murmur, no gallop. ABD: Soft and nontender, no guarding or rebound, nondistended. Back: Normal inspection, no midline tenderness. SKIN: Color normal, no rash, warm, dry, intact. EXTREMITIES: Normal appearance, no pedal edema. NEURO: Oriented x4. PSYCH: Normal affect. Const Vital Signs: 11/14/23 19:43 11/14/23 19:43 11/14/23 20:34 Temperature 97.9 F 97.9 F Temperature Source Oral Oral Pulse Rate 95 95 Respiratory Rate 20 H 20 H Respiratory Effort Normal Non-Labored Respiratory Pattern Normal Blood Pressure 145/84 H 145/84 H Blood Pressure Mean 104 104 Pulse Ox 99 99 Oxygen Delivery Method Room Air Room Air 11/14/23 21:53 Temperature 97.0 F L Temperature Source Pulse Rate 73 Respiratory Rate 20 H Respiratory Effort Respiratory Pattern Blood Pressure 108/71 Blood Pressure Mean 83 Pulse Ox 92 Oxygen Delivery Method <Dr. Colton De Leon DO - Last Filed: 11/14/23 22:27> Physical Exam Const Vital Signs: 11/14/23 19:43 11/14/23 19:43 11/14/23 20:34 Temperature 97.9 F 97.9 F Temperature Source Oral Oral Pulse Rate 95 95 Respiratory Rate 20 H 20 H Respiratory Effort Normal Non-Labored Respiratory Pattern Normal Blood Pressure 145/84 H 145/84 H Blood Pressure Mean 104 104 Pulse Ox 99 99 Oxygen Delivery Method Room Air Room Air 11/14/23 21:53 Temperature 97.0 F L Temperature Source Pulse Rate 73 Respiratory Rate 20 H Respiratory Effort Respiratory Pattern Blood Pressure 108/71 Blood Pressure Mean 83 Pulse Ox 92 Oxygen Delivery Method [facility] <CELIA Buitrago - Last Filed: 11/14/23 21:53> [facility] Narrative Medical decision making narrative: Patient had a mechanical fall 4 days ago injuring his right rib cage. He had negative x-rays at that time. He is taking Percocet but still has pain with movement or coughing. He is not short of breath. He actually walked here from home and is able to do ADLs. He appears well and nontoxic with stable vital signs. He has normal heart and lung sounds. He has no bruising or tenderness of his rib cage but does have reproducible pain when he moves. CT scan of the chest shows fractures of right third, fourth, fifth, and sixth ribs. There is no pneumothorax. He was treated with Vicodin and a Lidoderm patch. I offered to prescribe him a different narcotic medication for home and incentive spirometer but he states he wants admitted for pain control. Case was discussed with the hospitalist for admission. Differential: Rib contusions, fracture, pneumothorax Radiography Diagnostic Testing: Clinical Impression(s) from Imaging Studies Chest CT 11/14/23 20:04 IMPRESSION: The thyroid is heterogenous. It contains nodules. This should be further evaluated with ultrasound. This can be performed as an outpatient. There is no pneumothorax. Acute fracture of the right anterior third rib. Fracture of the lateral right fourth and fifth rib. Fracture of the right posterior sixth rib. Right upper lobe nodules. Fleischner Society Guidelines (MacMahon, et al. Radiology 2017; 284(1):228-43) suggest that no follow-up is necessary for patients with a low or high risk of malignancy. Electronically Signed: Mark Vieira MD at 20:42 EST , <Dr. Colton De Leon, DO - Last Filed: 11/14/23 22:27> MDM Radiography Diagnostic Testing: Clinical Impression(s) from Imaging Studies Chest CT 11/14/23 20:04 IMPRESSION: The thyroid is heterogenous. It contains nodules. This should be further evaluated with ultrasound. This can be performed as an outpatient. There is no pneumothorax. Acute fracture of the right anterior third rib. Fracture of the lateral right fourth and fifth rib. Fracture of the right posterior sixth rib. Right upper lobe nodules. Fleischner Society Guidelines (MacMahon, et al. Radiology 2017; 284(1):228-43) suggest that no follow-up is necessary for patients with a low or high risk of malignancy. Electronically Signed: Mark Vieira MD at 20:42 EST Reading Location ID and State: [facility] / [place] , Service support , Treatment and Re-Evaluation :: ED attending note: I evaluated the patient in conjunction with the [facility]. I agree with his/her statements and above findings. I have personally performed a face to face assessment of the patient and have reviewed the [facility] Note. I performed a substantive portion of the visit including all aspects of the following. I personally saw the patient performed chart review, physical exam, reviewed labs, imaging (if obtained), and formulated a treatment and management plan. This note was generated with [employer] dictation software. It may contain incorrect words, spelling, and punctuation that were not noted in review of the chart prior to signing. Discharge Plan Dx/Rx/DC Orders Clinical Impression: Multiple rib fractures Disposition Disposition: Acute Care Hospital [facility] Discharge Date/Time: 11/14/23 22:21
--- NOTE | 2023-11-14 20:04 | CT_ITS ---
STUDY: CT Chest W/O Contrast Injection 11/14/2023 8:37 PM REASON FOR EXAM: Male, 58 years old. rib pain History: rib pain right rib pain Radiation: CTDIvol = [20.06] mGy, DLP = [817.10] mGy-cm Individualized dose optimization techniques were used for this CT. TECHNIQUE: Transaxial imaging was performed without contrast material. COMPARISON: None. FINDINGS: There are degenerative changes of the shoulders. There is no pneumothorax. Acute fracture of the right anterior third rib. Fracture of the lateral right fourth and fifth rib. Fracture of the right posterior sixth rib. There is no demonstrated pleural abnormality. 3 mm and 3.6 mm soft tissue nodule in the superior segment of the right lower lobe. The thyroid is heterogenous. It contains nodules. This should be further evaluated with ultrasound. This can be performed as an outpatient. There are calcifications of the coronary arteries. Normal mediastinum. Normal hilar regions. Normal pulmonary arteries. Normal aorta arch and descending thoracic aorta. There are multi-level degenerative changes of the thoracic spine. There are no acute findings of the upper abdomen. CT/Chest without Contrast IMPRESSION: The thyroid is heterogenous. It contains nodules. This should be further evaluated with ultrasound. This can be performed as an outpatient. There is no pneumothorax. Acute fracture of the right anterior third rib. Fracture of the lateral right fourth and fifth rib. Fracture of the right posterior sixth rib. Right upper lobe nodules. Fleischner Society Guidelines (MacMahon, et al. Radiology 2017; 284(1):228-43) suggest that no follow-up is necessary for patients with a low or high risk of malignancy. Electronically Signed: Mark Vieira MD at 20:42 EST ,
[2023-11-14] MEDS: Lidocaine 5% Patch 1 PATCH TOPICAL (20:27)
[2023-11-14] MEDS: Acetaminophen 325 MG Tablet 650 MG PO (20:27)
[2023-11-14] MEDS: HYDROcodone Bitartrate/Apap 5/325 Tablet PO (20:27)
--- NOTE | 2023-11-14 21:36 | PCM.HP.STD ---
[facility] - General General Date of Admission: 11/14/23 Date of Service: 11/14/23 Chief Complaint: SOB and Right Rib Pain. HPI Narrative CARMEN HURST, is a 58 M with a past medical history of obesity; with BMI of 35.3 this admission, hypothyroidism, tobacco abuse, history of PE; on Coumadin, schizophrenia, depression; with history of suicidal ideation, GERD, OA and recent fall [address] evidence of fractures of the Right 3rd, 4th, 5th and 6th ribs who presents to [facility] ER complaining of SOB and worsening rib pain. Mr. Hurst reports his symptoms began approximately 4 days ago since his fall with pain made worse with movement and cough. He is able to do his ADL's and walked to the ER from home but he told his ER provider he does not want to go home because he wants to be admitted to pain control. There is no evidence of bruising over his broken ribs and there is no PTX visible on imaging. He denies associated fever, chills, nausea or vomiting and he appears nontoxic with stable vital signs. He was then admitted to the general medical floor under observation status for ongoing care for a stay that is expected to be less than 48 hours. [facility] Medical History Depression Hypothyroidism Pulmonary embolism Schizophrenia Smoker Home Medications benztropine 2 mg tablet 1 mg PO BID 07/23/13 [History Last Taken Unknown] Fenofibrate Nanocrystallized [Fenofibrate] 145 mg PO DAILY 12/07/13 [History Last Taken Unknown] warfarin 7.5 mg tablet (Jantoven) 7.5 mg PO SUFRSA 03/18/14 [History Last Taken Unknown] warfarin 5 mg tablet (Jantoven) 5 mg PO MOTUWETH 12/24/14 [History Last Taken Unknown] oxycodone-acetaminophen 5 mg-325 mg tablet (Percocet) 1 tab PO Q6H PRN pain 3 days #12 tabs 11/10/23 [Rx Last Taken Unknown] levothyroxine 88 mcg tablet 88 mcg PO DAILY 11/14/23 [History Last Taken Unknown] mirtazapine 45 mg tablet 45 mg PO DAILY 11/14/23 [History Last Taken Unknown] multivitamin (Daily Multi-Vitamin tablet) 1 tab PO DAILY 11/14/23 [History Last Taken Unknown] Allergy/AdvReac Type Severity Reaction Status Date / Time No Known Allergies Allergy Verified 11/14/23 19:43 Social History Smoking Status: Current every day smoker tobacco type: cigarettes ROS ROS Narrative Review of systems: General: Patient denies fevers or chills HENT: Denies headache, denies stuffy nose, denies sore throat EYES: Denies changes in vision or discharge from eyes Resp: Denies cough, denies shortness of breath but he does admit to pain over his right rib cage made worse with palpation as per HPI Cardiac: Denies chest pain or palpitations GI: Denies abdominal pain, denies changes in bowel, had some nausea : Denies changes in urination Extremity: Denies swelling Musculoskeletal: Feels somewhat generally weak and unwell Neuro: Denies any numbness/tingling, headaches or focal neurologic deficits Heme: Denies any bleeding or bruising Skin: Denies rashes Psychiatric: No complaints voiced related to uncontrolled depression or anxiety Endocrine: No polyuria, polydipsia or polyphagia The rest of the 14 point ROS was negative except for positives in HPI. Vital Signs Vital Signs Vital Signs: 11/14/23 19:43 11/14/23 19:43 11/14/23 20:34 Temperature 97.9 F 97.9 F Temperature Source Oral Oral Pulse Rate 95 95 Respiratory Rate 20 H 20 H Respiratory Effort Normal Non-Labored Respiratory Pattern Normal Blood Pressure 145/84 H 145/84 H Blood Pressure Mean 104 104 Pulse Ox 99 99 Oxygen Delivery Method Room Air Room Air Weight Weight: 267 lb 10.259 oz Body Mass Index (BMI) 35.3 Physical Exam Const alert, oriented x3, no apparent distress, average body habitus and healthy appearing Constitutional Narrative: Patient has flat affect. General Appearance: cooperative HEENT normocephalic, head/scalp atraumatic, hearing grossly normal bilaterally and moist oral mucous membranes Eyes PERRL and EOMs intact bilaterally Neck no lymphadenopathy and supple Resp normal respiratory effort, no retractions, no use of accessory muscles and clear to auscultation bilaterally Cardio regular rate and regular rhythm GI normal to inspection, nondistended, normoactive bowel sounds, soft to palpation, non-tender and non-distended Extremity normal to inspection and full ROM Skin Skin Narrative: Patient has no evidence of rash at this time. Neuro oriented x3, CN's II-XII intact bilaterally, moves all extremities and no focal motor deficits Sensorium / Orientation: awake, oriented to person, oriented to place and oriented to time Speech: speech normal Motor Exam: strength 5/5 throughout Psych Psych Narrative: Patient has flat affect. Results Medical Records Data Attestation: I reviewed the patient's medical records Lab / Micro Data Attestation: I reviewed the patient's lab results. 11/15/23 06:03 11/15/23 06:03 Imaging Radiology Impression Chest CT 11/14/23 20:04 IMPRESSION: The thyroid is heterogenous. It contains nodules. This should be further evaluated with ultrasound. This can be performed as an outpatient. There is no pneumothorax. Acute fracture of the right anterior third rib. Fracture of the lateral right fourth and fifth rib. Fracture of the right posterior sixth rib. Right upper lobe nodules. Fleischner Society Guidelines (MacMahon, et al. Radiology 2017; 284(1):228-43) suggest that no follow-up is necessary for patients with a low or high risk of malignancy. Electronically Signed: Mark Vieira MD at 20:42 EST Reading Location ID and State: [facility] / [place] , Service support , Assessment & Plan Assessment/Plan (1) Thyroid disorder: (2) Multiple rib fractures: QUALIFIERS: Encounter type: sequela Fracture type: closed Laterality: right Qualified Code(s): S22.41XS - Multiple fractures of ribs, right side, sequela (3) Contusion of rib on right side: QUALIFIERS: Encounter type: sequela Qualified Code(s): S20.211S - Contusion of right front wall of thorax, sequela (4) History of schizophrenia: PLAN: Plan 1. Fall [address] evidence of fractures of the Right 3rd, 4th, 5th and 6th ribs with uncontrolled pain and pulmonary nodules incidentally noted on the CT - Admit to general medical floor under observation status. Place Lidoderm patches x 3 over entire area/dermatome plus give Tylenol prn for [id number] (level 1-5/10) pain or fever. Give Percocet prn for severe (level 6-10/10) pain. Finally, PT/OT and case management will be consulted to see this patient on-rounds in the AM for further recommendation and help with discharge planning with help appreciated in advance. Consider outpatient pulmonology referral for his incidentally noted pulmonary nodules on CT this admission. 2. Hypothyroidism with heterogenous appearance of Thyroid gland incidentally noted on CT this admission with U/S recommended complicating #1 - Continue Synthroid and check thyroid ultrasound as recommended by radiologist. Check thyroid profile. 3. History of PE; on Coumadin - Check PT/INR and continue Coumadin as previous. 4. Schizophrenia - Stable. Resume home regimen as previous. 5. Tobacco abuse - Tobacco cessation will be strongly encouraged with Nicotine patch offered to control cravings. 6. Depression; with history of suicidal ideation - Noted. Continue home medications. 7. GERD - Stable. 8. OA - Stable. 9. DVT prophylaxis - Patient is already on Coumadin for #3 which will be continued. Total time: Approximately 40 minutes. Charges/Coding Visit Charges OBSV E&M: 88663 Observ/hosp same date L1
[2023-11-14 21:53] VITALS: BP 108/71; PULSE 73; RESP 20; TEMP 36.1; O2SAT 92
[2023-11-14 22:35] VITALS: BP 118/73; PULSE 79; RESP 18; TEMP 36.6; O2SAT 95; BMI 34.7
[2023-11-14] MEDS: 0.9% Normal Saline (1000mL) 1,000 ML 70 ML IV (23:06)
[2023-11-14] MEDS: Mirtazapine 15 MG Tablet 45 MG PO (23:51)
[2023-11-14] MEDS: Benztropine 2 MG Tablet 1 MG PO (23:51)
[2023-11-15 00:14] LABS: T4 Free Direct 1.29 ng/dL (0.76-1.46)
[2023-11-15 04:35] VITALS: BP 124/71; PULSE 71; RESP 18; TEMP 36.6; O2SAT 93
[2023-11-15] MEDS: Levothyroxine 88 MCG Tablet PO (04:56)
[2023-11-15] MEDS: Oxycodone/Apap 5/325 Tablet PO ×3 (04:56→20:21)
[2023-11-15 05:00] VITALS: BMI 34.9
--- NOTE | 2023-11-15 06:00 | US_ITS ---
STUDY: THYROID ULTRASOUND REASON FOR EXAM: Male, [address] with heterogenous thyroid appearance. TECHNIQUE: Ultrasound evaluation of the thyroid was performed with real-time and static mina-scale imaging. COMPARISON: None. FINDINGS: RIGHT LOBE: The right lobe of the thyroid gland is enlarged and measures 5.9 cm x 2.2 cm x 2.9 cm. There is a homogeneous echotexture. There are 4 hypoechoic solid nodules in the right lobe. The largest measures 2.1 cm x 1.9 cm x 1.7 cm. Biopsy recommended. LEFT LOBE: The left lobe of the thyroid gland measures 4.2 cm x 1.8 cm x 1.6 cm. There is a heterogeneous echotexture. There are 3 hypoechoic solid nodules within the left lobe of the thyroid. The largest measures 1.4 cm x 1.2 cm x 1.1 cm. ISTHMUS: The isthmus measures 3.4 mm. The regional lymph nodes are normal. US/Thyroid IMPRESSION: Enlargement of the right lobe of the thyroid with a dominant solid nodules in both lobes as described. Correlation with a nuclear medicine thyroid uptake and scan is recommended. Biopsy may be indicated. Electronically Signed: Harpal Tan MD at 10:41 EST ,
[2023-11-15 06:30] LABS: Absolute Lymphocyte Count 0.67 X10^3/uL (0.83-4.51); Absolute Neutrophil Count 3.4 X10^3/uL (2.0-7.7); Basophil# 0.08 X10^3/uL; Basophil% 1.5 % (0-1); Eosinophil# 0.55 X10^3/uL; Eosinophils% 10.6 % (0-5); Hematocrit 40.2 % (40-54); Lymphocyte # 0.67 X10^3/ul (0.83-4.51); Mean Corp Hgb Conc 32.3 g/dL (32-36); Mean Corpuscular Hgb 30.2 pg (27.0-32.0); Mean Corpuscular Volume 93.5 fL (80-94); Mean Platelet Vol. 10.6 fl (6.2-12.0); Monocyte# 0.45 X10^3/uL; Monocyte% 8.7 % (0-10); NRBC Flagged by Analyzer 0 % (0-5); Neutrophil # 3.41 X10^3/uL (2.7-7.7); Platelet Count 205 K/mm3 (150-450); RBC Distribution Width CV 13.8 % (11.6-14.6); White Blood Count 5.2 K/mm3 (4.4-11.0)
[2023-11-15 06:42] LABS: International Normalized Ratio 3.4
[2023-11-15 06:59] LABS: ALB/GLOB Ratio 1.2 RATIO (0.9-2.4); AST(SGOT) 24 U/L (15-37); Alanine Aminotransfer ALT/SGPT 23 U/L (16-61); Albumin, Serum 3.3 g/dL (3.2-5.0); Alkaline Phosphatase 55 U/L (45-117); Anion Gap 4 (5-15); BUN 17 mg/dL (7-18); BUN/Creat Ratio 18.2 RATIO (10-20); Calcium,Total 8.7 mg/dL (8.5-10.1); Chloride 112 mmol/L (98-107); Creatinine, Serum 0.93 mg/dL (0.70-1.30); EST Glomerular Filtration Rate 88 mL/min (>60); Est Glom Filt Rate - Afr Amer 107 mL/min (>60); Estimated Creatinine Clearance 117.49 ml/min; Globulin 2.8 g/dL (2.2-4.2); Glucose 106 mg/dL (74-106); Potassium 3.8 mmol/L (3.5-5.1); Protein, Total 6.1 g/dL (6.4-8.2); Sodium Level 141 mmol/L (136-145); Thyroid Stim Hormone (TSH) 4.42 uIU/mL (0.358-3.74)
--- NOTE | 2023-11-15 07:52 | PCM.PN.HOSP ---
Reason for Visit Reason for Visit: Diagnoses Disorder of thyroid, unspecified (11/14/23) Contusion of right front wall of thorax, sequela (11/14/23) Multiple fractures of ribs, right side, sequela (11/14/23) Personal history of other mental and behavioral disorders (11/14/23) Objective Data Objective Data Vital Signs: Vital Signs Temp Pulse Resp BP Pulse Ox O2 Del Method 97.8 F 71 18 124/71 H 93 Room Air 11/15/23 04:35 11/15/23 04:35 11/15/23 04:35 11/15/23 04:35 11/15/23 04:35 11/15/23 04:35 Oxygen Delivery Method Room Air Weight: 264 lb 8.875 oz Body Mass Index (BMI) 34.9 Intake & Output: Intake and Output for Last 24 Hours 11/13/23 11/14/23 11/15/23 23:59 23:59 23:59 Intake Total 500 / 500 Balance 500 / 500 Lab / Micro Data 11/15/23 06:03 11/15/23 06:03 Labs: Laboratory Results - last 24 hr 11/14/23 23:30: Free T4 1.29 11/15/23 06:03: WBC 5.2, RBC 4.30 L, Hgb 13.0, Hct 40.2, MCV 93.5, MCH 30.2, MCHC 32.3, RDW Std Deviation 47.0 H, RDW Coeff of Yaima 13.8, Plt Count 205, MPV 10.6, Immature Gran % (Auto) 0.200, Neut % (Auto) 66.0, Lymph % (Auto) 13.0 L, Norton % (Auto) 8.7, Eos % (Auto) 10.6 H, Baso % (Auto) 1.5 H, Absolute Neuts (auto) 3.4, Absolute Lymphs (auto) 0.67 L, Nucleated RBC % 0, PT 35.0 H, INR 3.4, Sodium 141, Potassium 3.8, Chloride 112 H, Carbon Dioxide 25.0, Anion Gap 4 L, BUN 17, Creatinine 0.93, Estim Creat Clear Calc 117.49, Est GFR (MDRD) Af Amer 107, Est GFR (MDRD) Non-Af 88, BUN/Creatinine Ratio 18.2, Glucose 106, Calcium 8.7, Phosphorus 3.0, Magnesium 2.0, Total Bilirubin 0.70, AST 24, ALT 23, Alkaline Phosphatase 55, Total Protein 6.1 L, Albumin 3.3, Globulin 2.8, Albumin/Globulin Ratio 1.2, TSH 4.42 H Radiography Diagnostic Testing: Radiology Impression Chest CT 11/14/23 20:04 IMPRESSION: The thyroid is heterogenous. It contains nodules. This should be further evaluated with ultrasound. This can be performed as an outpatient. There is no pneumothorax. Acute fracture of the right anterior third rib. Fracture of the lateral right fourth and fifth rib. Fracture of the right posterior sixth rib. Right upper lobe nodules. Fleischner Society Guidelines (MacMahon, et al. Radiology 2017; 284(1):228-43) suggest that no follow-up is necessary for patients with a low or high risk of malignancy. Electronically Signed: Mark Vieira MD at 20:42 EST Reading Location ID and State: [facility] / [place] , Service support , Physical Exam Narrative Seen and examined. Patient complaining of severe right-sided rib cage/chest wall pain, 8 to/10 intensity. He does not have cough but pain which gets exacerbated on inspiration and coughing. No fever. Physical exam General: Alert, Oriented x3, Cooperative HEENT: Atraumatic, PERRLA, EOMI, Normocephalic Oral: No Gingival or Mucosal Lesions/ Ulcerations Neck: Supple, No JVD, Negative Carotid Bruits Chest wall/Lungs: Tenderness present over right sided anterior lateral rib cage/chest wall muscle. No subcutaneous emphysema palpable. Air entry diminished on right lung base due to diminished chest wall excursion. No crepitation/rhonchi. No hypoxia or tachypnea. Cardiovascular: Regular rate, Regular Rhythm, Normal S1, Normal S2, No M/G/R Abdomen: Bowel Sounds Present, Soft, Non Tender, Non-Distended : No dysuria. No renal angle tenderness. No suprapubic tenderness. Extremities: No edema, Capillary Refill Less than 3 Seconds Skin: No rashes, No breakdown Musculoskeletal: No Tenderness to Palpation of Joints or Extremities Neurological: Cranial nerves II-XII grossly intact, DTR 2+/4. No acute focal neurological deficit. Psych/Mental Status: Normal Affect, Appropriate. Assessment & Plan Assessment/Plan (1) Thyroid disorder: (2) Multiple rib fractures: QUALIFIERS: Encounter type: sequela Fracture type: closed Laterality: right Qualified Code(s): S22.41XS - Multiple fractures of ribs, right side, sequela (3) Contusion of rib on right side: QUALIFIERS: Encounter type: sequela Qualified Code(s): S20.211S - Contusion of right front wall of thorax, sequela (4) History of schizophrenia: PLAN: Plan 1. Fall [address] evidence of fractures of the Right 3rd, 4th, 5th and 6th ribs with uncontrolled pain and pulmonary nodules incidentally noted on the CT - Admit to general medical floor under observation status. Place Lidoderm patches x 3 over entire area/dermatome plus give Tylenol prn for [id number] (level 1-5/10) pain or fever. Give Percocet prn for severe (level 6-10/10) pain. Finally, PT/OT and case management will be consulted to see this patient on-rounds in the AM for further recommendation and help with discharge planning with help appreciated in advance. Consider outpatient pulmonology referral for his incidentally noted pulmonary nodules on CT this admission. 2: Patient was put on Lidoderm patch. Continue incentive spirometry and PEP for 1 week to improve right lung atelectasis. On pain control.Patient on Percocet. 2. Hypothyroidism with heterogenous appearance of Thyroid gland incidentally noted on CT this admission with U/S recommended complicating #1 - Continue Synthroid and check thyroid ultrasound as recommended by radiologist. Check thyroid profile. 11/15: Thyroid ultrasound shows enlargement of right lobe of thyroid with dominant solid nodules in both lobes. 4 hypoechoic solid nodule in the right lobe largest measuring 2.1 x 1.9 x 1.7 cm. Left lobe thyroid gland 3 hypoechoic solid nodules, largest measuring 1.4 x 1.2 by 1.1 cm. Biopsy recommended, can be arranged as an outpatient. TSH 4.42. Free T41.29 Normal. I think patient is in euthyroid state. 3. History of PE; on Coumadin - INR 3.4. Hold warfarin. 4. Schizophrenia - Resume home regimen as previous. 5. Tobacco abuse - Tobacco cessation will be strongly encouraged with Nicotine patch offered to control cravings. 6. Depression; with history of suicidal ideation - Noted. Continue home medications. 7. GERD - Stable. 8. OA - Stable. 9. DVT prophylaxis -INR supratherapeutic therefore hold warfarin. Charges/Coding Visit Charges Inpatient E&M: 27858 Subs Hosp L2
[2023-11-15 08:20] VITALS: BP 124/76; PULSE 70; RESP 18; TEMP 36.8; O2SAT 93
[2023-11-15] MEDS: Multivitamins,Therapeutic Tablet 1 TABLET PO (08:29)
[2023-11-15] MEDS: Benztropine 2 MG Tablet 1 MG PO ×2 (08:29→20:20)
--- NOTE | 2023-11-15 11:00 | CASEMGMT ---
Social Work Occupational Therapist presented to manager social responsibility indicating that patient was inquiring whether someone had alerted patient's business case analyst to hospitalization. Chart reviewed and noted patient has a legal guardian, Sabine Vegas. Ms. Vegas is a guardian b2b outside sales representative for [facility]. Called number listed in patient's demographic data, which is out of service. Called [facility] and obtained correct cell for Ms. Vegas ([phone]). Updated patient's demographic data. Spoke with Ms. Vegas on the phone who confirmed legal guardianship in place and will send the letter of guardianship to the hospital by fax or email. Ms. Vegas reports patient was due to monthly decanoate shot today, which patient's director of managed care Zeeshan Lizarraga was to take patient to. Zeeshan went to patient's home and unable to find the patient. Guardian will update the business case analyst. This specifications writer inquired whether a new appointment for monthly injection has been set, so that patient can remain up to date with psychiatric mediations. Guardian reports plan to talk with Zeeshan and will see if Zeeshan can reschedule and come to hospital to update the patient. Plan: Anticipate patient to return home with [facility] to actively follow for psychiatry, case management, and legal guardianship. -SONG Montemayor
[2023-11-15 11:50] VITALS: O2SAT 95
[2023-11-15] MEDS: 0.9% Normal Saline (1000mL) 1,000 ML 70 ML IV (12:01)
[2023-11-15 13:57] VITALS: BP 125/83; PULSE 80; RESP 20; TEMP 35.9; O2SAT 96
[2023-11-15] MEDS: Lidocaine 5% Patch 1 PATCH TOPICAL (14:02)
--- NOTE | 2023-11-15 15:58 | CASEMGMT ---
A vm was left for patients legal guardian to complete GUZMAN form. Awaiting return call. Nataliia Siegel, Discharge Planning Asst.
--- NOTE | 2023-11-15 16:00 | CASEMGMT ---
MOHSEN SYED Assessment Face to Face with patient for initial transition planning/care coordination assessment. MOHSEN SYED introduced self and role at [facility], pt voices understanding. Pt is A&Ox3 and is resting comfortably in the chair and is calm. Care providers, pharmacy, and demographics verified. Admitting dx: Fall with Rib Fx's LACE Strata: 1 PCP: Darci Specialists: Pt states he sees a Psychiatrist Preferred Pharmacy: [facility] Insurance: JAGDEEP MORILLO Prescription Benefit: Yes LNOK: LG - Kenzie Vegas Living Arrangements: Pt lives on the second floor in an apartment with a half flight of steps to get to the apartemnt. Pt states there are HR and denies issues using the steps. ADLs/IADLs: Ind Transportation: Pt uses the [employer] bus DME: Denies uses or needs HHC/SNF: Denies history or needs Plan: Pt states that he wants to DC back to his apartment with no additional needs at this time. Pt denies the need for additional therapy at home. Pt states that he has CM through [facility] [place]. TC to [facility] at this time and the pt CM is Zeeshan Lizarraga. TC to Zeeshan Lizarraga at this time and Zeeshan is updated with the pt status and current plan. Zeeshan states that he would like to be called at time of DC at [phone]. Trino Mak RN, CM
[2023-11-15 20:13] VITALS: BP 131/91; PULSE 71; RESP 20; TEMP 36.4; O2SAT 95
[2023-11-15] MEDS: Fenofibrate 145 MG Tablet PO (20:20)
[2023-11-15] MEDS: Mirtazapine 15 MG Tablet 45 MG PO (20:20)
[2023-11-16] MEDS: 0.9% Normal Saline (1000mL) 1,000 ML 70 ML IV (01:54)
[2023-11-16 01:57] VITALS: BP 136/81; PULSE 64; RESP 18; TEMP 36.8; O2SAT 95
[2023-11-16 02:44] VITALS: BMI 34.6
[2023-11-16] MEDS: Oxycodone/Apap 5/325 Tablet PO ×2 (03:58→10:27)
[2023-11-16] MEDS: Levothyroxine 88 MCG Tablet PO (03:59)
[2023-11-16 07:30] VITALS: O2SAT 96
[2023-11-16 08:09] VITALS: BP 117/79; PULSE 72; RESP 18; TEMP 36.6; O2SAT 96
[2023-11-16] MEDS: Benztropine 2 MG Tablet 1 MG PO (08:15)
[2023-11-16] MEDS: Multivitamins,Therapeutic Tablet 1 TABLET PO (08:15)
[2023-11-16] MEDS: Lidocaine 5% Patch 1 PATCH TOPICAL (08:15)
[2023-11-16 09:08] LABS: International Normalized Ratio 2.7; Prothrombin Time (Protime)PT. 28.6 SECONDS (11.7-14.9)
--- NOTE | 2023-11-16 09:58 | CASEMGMT ---
GUZMAN form faxed to [facility], Attn: Sabine Vegas. Nataliia Siegel, Discharge Planning Asst.
--- NOTE | 2023-11-16 10:47 | CASEMGMT ---
Addendum entered by Leola Anthony 11/16/23 13:00: Social Work SW called the guardian plant protection supervisor, Jaclyn Mcnamara([phone]), explained that SW left messages for the guardian Kenzie and for pt's nurse case management Zeeshan Lizarraga. SW explained that pt is ready for discharge and wants to walk home, inquired if someone can help to get pt home. She states will reach out to Zeeshan and have him call SW. Zeeshan Lizarraga then called the CM, SW spoke w/him. He is able to give pt a ride, home, SW spoke w/RN, she states pt can be ready by 2pm. SW let Zeeshan know, he will call from the front entry way. SW also asked him about pt's medications, as pt had mentioned to RN was to have meds delivered on Wednesday but he was here. Zeeshan states he will work on this before he comes to get the pt. SW also asked Zeeshan about getting pt's monthly injection rescheduled for this week, Zeeshan states will do so. SW did inform Zeeshan of pt's appt w/Dr. Bejarano as well. SW spoke w/pt, let him know Zeeshan is going to help pt get his medications that were to be delivered Wednesday, and will be here about 2pm to pick him up. Pt then asked about getting groceries, SW advised him to speak w/Zeeshan about it when he gets here. No further needs, pt home today, pt's nurse case management is to pick him up at 2pm. DIO Diaz-S Addendum entered by Leola Anthony 11/16/23 11:43: Social Work Pt asked to speak w/SW. SW met w/pt. Pt is expressing concern about pain medication, as physician here will prescribe 10 pills. Pt states he will run out in 2 and a half days. He wants to know if Dr. Bejarano(his PCP) will prescribe additional pain medication for him, and if not if he can follow up w/Dr. Bjearano soon so he can get additional pain meds. Pt states the doctor told him it will take 3-4 weeks for this to heal. SW explained will call to find out. SW called Dr. Bejarano' office, spoke w/nurse William. She states the physician will likely not prescribe pain medication without seeing pt but she can ask. She was able to set up an appt for pt on 11/18/23 at 10am. Nataliia then called back and said since the appt is so soon, the doctor is not going to prescribe pain meds, as pt can follow up w/this on . SW spoke w/pt again, gave him the above information regarding the appt and that he can follow up at that time regarding the pain medication. Pt states understanding. SW still awaitng calls back from pt's guardian and nurse case management. HUGO Diaz Original Note: Social Work Pt to be discharged today. SW called pt's nurse case management, Zeeshan Lizarraga, message left. SW called pt's guardian, Kenzie Vegas, message left. HUGO Diaz
--- NOTE | 2023-11-16 11:05 | PCM.DC ---
Discharge Instructions Diet Discharge Diet: No restrictions Activity Discharge Activity: Return to Normal Activity and May Not Drive Weight Bearing Status: Weight bearing as tolerated Dressing / Incision Call your doctor if you observe: Fever of 101 or Higher, Coldness, Increased Pain, Numbness or Tingling, Change in Color, Inability to urinate, Inability to have a bowel movement, Shortness of breath, Dizziness, Fainting spells, Swelling in the ankles, Chest pain, Prolonged hiccupping, Increased palpitations (irregular heartbeat) and Calf discomfort Follow Up Care When: IN 2 WEEKS Test Results: Test results from this visit will be discussed in further detail at your follow-up appointment, if applicable. Discharge Plan Admission Admit Date/Time: 11/14/23 21:57 Primary Reason for Your Visit: Right-sided rib fracture Attending Provider: Vu Rain Primary Care Provider: Jac Bejarano Consulting Providers: Kin Joseph Instructions Additional Instructions / Restrictions: Advised to continue incentive spirometry for at least 1 week. Discharge Orders/Prescriptions Prescriptions: Continued benztropine 2 MG tablet 1 mg PO BID Fenofibrate Nanocrystallized [Fenofibrate] 145 MG tablet 145 mg PO DAILY Patient Comments: warfarin [Jantoven] 7.5 MG tablet 7.5 mg PO SUFRSA warfarin [Jantoven] 5 MG tablet 5 mg PO MOTUWETH levothyroxine 88 mcg tablet 88 mcg PO DAILY multivitamin [Daily Multi-Vitamin] Tablet 1 tab PO DAILY mirtazapine 45 mg tablet 45 mg PO DAILY Invega Sustenna 234 mg/1.5 mL syringe IM paliperidone 3 mg tablet extended release 24hr PO Patient Comments: Filled on 10/18/23- patient does not know if he takes this. oxycodone-acetaminophen [Percocet] 5-325 mg tablet 1 tab PO Q6H PRN (Reason: pain) 3 Days Qty: 10 0RF Referrals / Follow Up: Josiah Crandall MD [Med Staff - Active Staff] - Within 1 Month (For multiple nodules in both lobes of thyroid gland) Jac Bejarano MD [Primary Care Provider] - 11/18/23 9:45 am Jac Bejarano MD [[facility]] - Disposition Disposition (needs filled in before D/C Order can be placed): Home, Self Care
--- NOTE | 2023-11-16 11:38 | DS.PCM_ITS ---
Providers Date of Admission: 11/14/23 Date of Discharge: 11/16/23 Primary Care Physician: Dr. Jac Bejarano MD Reason For Visit: UNCONTROLLED PAIN & FALL WITH RIB FX'S Diagnosis Discharge Diagnosis (1) Thyroid disorder: Status: Acute Code(s): E07.9 - Disorder of thyroid, unspecified (2) Multiple rib fractures: Status: Acute Code(s): S22.49XA - Multiple fractures of ribs, unspecified side, initial encounter for closed fracture Qualifiers: Encounter type: sequela Fracture type: closed Laterality: right Qualified Code(s): S22.41XS - Multiple fractures of ribs, right side, sequela (3) Contusion of rib on right side: Status: Acute Code(s): S20.211A - Contusion of right front wall of thorax, initial encounter Qualifiers: Encounter type: sequela Qualified Code(s): S20.211S - Contusion of right front wall of thorax, sequela (4) History of schizophrenia: Status: Acute Code(s): Z86.59 - Personal history of other mental and behavioral disorders Plan This is 58-year-old gentleman with history of schizophrenia, DVT/PE on warfarin had a fall on 11/10 on his right chest and therefore admitted through ED on the Medr floor. 1. Fall [address] evidence of fractures of the Right 3rd, 4th, 5th and 6th ribs with uncontrolled pain and pulmonary nodules incidentally noted on the CT -patient was admitted to general medical floor under observation status. Place Lidoderm patches x 3 over entire area/dermatome plus give Tylenol prn for [id number] (level 1-5/10) pain or fever. Give Percocet prn for severe (level 6-10/10) pain. Finally, PT/OT and case management will be consulted to see this patient on-rounds in the AM for further recommendation and help with discharge planning with help appreciated in advance. Consider outpatient pulmonology referral for his incidentally noted pulmonary nodules on CT this admission. 11/15: Patient was put on Lidoderm patch. Continue incentive spirometry and PEP for 1 week to improve right lung atelectasis. On pain control.Patient on Percocet. 11/18: Patient is still feels pain and states he has 3 Percocet tablets left from the last prescription. As patient is still in severe pain therefore prescript ion given for Percocet total 10 tablets. OARRS report checked.Patient is below over dose unintentional score. Advised follow-up PCP Dr. Bejarano in case if he needs more pain refill. Advised incentive spirometry for 1 more week. 2. Hypothyroidism with heterogenous appearance of Thyroid gland incidentally noted on CT this admission with U/S recommended complicating #1 - Continue Synthroid and check thyroid ultrasound as recommended by radiologist. Check thyroid profile. 11/15: Thyroid ultrasound shows enlargement of right lobe of thyroid with dominant solid nodules in both lobes. 4 hypoechoic solid nodule in the right lobe largest measuring 2.1 x 1.9 x 1.7 cm. Left lobe thyroid gland 3 hypoechoic solid nodules, largest measuring 1.4 x 1.2 by 1.1 cm. Biopsy recommended, can be arranged as an outpatient. TSH 4.42. Free T41.29 Normal. I think patient is in euthyroid state. 11/16: On 11/15, I talked to endocrine surgeon Dr. Josiah Crandall and clinical history with the above thyroid ultrasound findings were discussed. He advised to follow-up with him in the office and he will take care of the thyroid nodules. This was discussed with the patient in front of the patient's nurse and an appointment was made with his office 3. History of PE; on Coumadin - INR 3.4. 11/16: INR is 2.7 therefore resume warfarin his home dose. 4. Schizophrenia - Resume home regimen as previous. 5. Tobacco abuse - Tobacco cessation will be strongly encouraged with Nicotine patch offered to control cravings. 6. Depression; with history of suicidal ideation - Noted. Continue home me dications. 7. GERD - Stable. 8. OA - Stable. 9. DVT prophylaxis -INR supratherapeutic therefore hold warfarin. Discharge medication reconciliation done. Discharge follow-up instructions c ompleted. Discharge process discussed with the patient and all questions were answered to patient's satisfaction. Follow with PCP in 1 to 2 weeks Total time spent, exact 35 minutes on discharge meds reconciliation, examination, coordination of care with nurses and ancillary staff, review of imaging and blood test and discussion with the patient on follow-up instructions. Medications at Discharge Home Medications benztropine 2 mg tablet 1 mg PO BID 07/23/13 Fenofibrate Nanocrystallized [Fenofibrate] 145 mg PO DAILY 12/07/13 warfarin 7.5 mg tablet (Jantoven) 7.5 mg PO SUFRSA 03/18/14 warfarin 5 mg tablet (Jantoven) 5 mg PO MOTUWETH 12/24/14 levothyroxine 88 mcg tablet 88 mcg PO DAILY 11/14/23 mirtazapine 45 mg tablet 45 mg PO DAILY 11/14/23 multivitamin (Daily Multi-Vitamin tablet) 1 tab PO DAILY 11/14/23 paliperidone 3 mg tablet,extended release 24 hr mg PO 11/15/23 paliperidone palmitate 234 mg/1.5 mL intramuscular syringe (Invega Sustenna) mg IM mental disorder 11/15/23 oxycodone-acetaminophen 5 mg-325 mg tablet (Percocet) 1 tab PO Q6H PRN pain 3 days #10 tabs 11/16/23 Physical Exam Narrative Physical exam General: Alert, Oriented x3, Cooperative HEENT: Atraumatic, PERRLA, EOMI, Normocephalic Oral: No Gingival or Mucosal Lesions/ Ulcerations Neck: Thyroid was palpated and nodules felt on both lobes. Could not feel the lower border of the thyroid on swallowing. Thyromegaly. Supple, No JVD, Negative Carotid Bruits Chest wall/Lungs: Tenderness present over right sided anterior lateral rib cage/chest wall muscle. No subcutaneous emphysema palpable. Air entry diminished on right lung base due to diminished chest wall excursion. No crepitation/rhonchi. No hypoxia or tachypnea. Cardiovascular: Regular rate, Regular Rhythm, Normal S1, Normal S2, No M/G/R Abdomen: Bowel Sounds Present, Soft, Non Tender, Non-Distended : No dysuria. No renal angle tenderness. No suprapubic tenderness. Extremities: No edema, Capillary Refill Less than 3 Seconds Skin: No rashes, No breakdown Musculoskeletal: No Tenderness to Palpation of Joints or Extremities Neurological: Cranial nerves II-XII grossly intact, DTR 2+/4. No acute focal neurological deficit. Psych/Mental Status: Flat affect. Needs repeated narrative for understanding. Schizophrenia. Weight / BMI Weight Weight: 262 lb 8 oz Body Mass Index (BMI) 34.6 ABG / Lab / Microbiology Data 11/15/23 06:03 11/15/23 06:03 Laboratory: Laboratory Results - last 24 hr 11/16/23 07:04: PT 28.6 H, INR 2.7 D/C Instructions Discharge Diet: No restrictions Weight Bearing Status: Weight bearing as tolerated Call your doctor if you observe: Fever of 101 or Higher, Coldness, Increased Pain, Numbness or Tingling, Change in Color, Inability to urinate, Inability to have a bowel movement, Shortness of breath, Dizziness, Fainting spells, Swelling in the ankles, Chest pain, Prolonged hiccupping, Increased palpitations (irregular heartbeat) and Calf discomfort When: IN 2 WEEKS Meaningful Use Info Meaningful Use Diagnoses (Choose all that apply): None applicable Discharge Plan Admission Admit Date/Time: 11/14/23 21:57 Primary Reason for Your Visit: Right-sided rib fracture Attending Provider: Vu Rain Primary Care Provider: Jac Bejarano Consulting Providers: Kin Joseph Instructions Additional Instructions / Restrictions: Advised to continue incentive spirometry for at least 1 week. Discharge Orders/Prescriptions Prescriptions: Continued benztropine 2 MG tablet 1 mg PO BID Fenofibrate Nanocrystallized [Fenofibrate] 145 MG tablet 145 mg PO DAILY Patient Comments: warfarin [Jantoven] 7.5 MG tablet 7.5 mg PO SUFRSA warfarin [Jantoven] 5 MG tablet 5 mg PO MOTUWETH levothyroxine 88 mcg tablet 88 mcg PO DAILY multivitamin [Daily Multi-Vitamin] Tablet 1 tab PO DAILY mirtazapine 45 mg tablet 45 mg PO DAILY Invega Sustenna 234 mg/1.5 mL syringe IM paliperidone 3 mg tablet extended release 24hr PO Patient Comments: Filled on 10/18/23- patient does not know if he takes this. oxycodone-acetaminophen [Percocet] 5-325 mg tablet 1 tab PO Q6H PRN (Reason: pain) 3 Days Qty: 10 0RF Referrals / Follow Up: Josiah Crandall MD [Med Staff - Active Staff] - Within 1 Month (For multiple nodules in both lobes of thyroid gland) Jac Bejarano MD [Primary Care Provider] - 11/18/23 9:45 am Jac Bejarano MD [[facility]] - Disposition Disposition (needs filled in before D/C Order can be placed): Home, Self Care Charges/Coding Visit Charges Inpatient E&M: 81469 Disch Hosp >30min
--- NOTE | 2023-11-16 12:01 | PHA.DC.MC.R ---
Pharmacy [facility] has performed discharge medication reconciliation and counseling for this patient. The patient's discharge medication list was reviewed for discrepancies and discrepancies were resolved. The patient was counseled on the following discharge medications and changes in medications for homegoing were reviewed. The Reason for Use, instructions for use, and potential side effects were reviewed for all new medications. The patient's questions regarding all of their medications were answered. 1. Oxycodone/acetaminophen 5/325 mg PO Q6H PRN pain The patient was able to verbally demonstrate an understanding of their discharge medications. Medications at Discharge Home Medications benztropine 2 mg tablet 1 mg PO BID 07/23/13 Fenofibrate Nanocrystallized [Fenofibrate] 145 mg PO DAILY 12/07/13 warfarin 7.5 mg tablet (Jantoven) 7.5 mg PO SUFRSA 03/18/14 warfarin 5 mg tablet (Jantoven) 5 mg PO MOTUWETH 12/24/14 levothyroxine 88 mcg tablet 88 mcg PO DAILY 11/14/23 mirtazapine 45 mg tablet 45 mg PO DAILY 11/14/23 multivitamin (Daily Multi-Vitamin tablet) 1 tab PO DAILY 11/14/23 paliperidone 3 mg tablet,extended release 24 hr mg PO 11/15/23 paliperidone palmitate 234 mg/1.5 mL intramuscular syringe (Invega Sustenna) mg IM mental disorder 11/15/23 oxycodone-acetaminophen 5 mg-325 mg tablet (Percocet) 1 tab PO Q6H PRN pain 3 days #10 tabs 11/16/23
[2023-11-16 13:35] VITALS: BP 118/74; PULSE 83; RESP 12; TEMP 36.4; O2SAT 96
--- NOTE | 2023-11-16 13:55 | CASEMGMT ---
Spoke with patients legal guardian, Sabine Vegas, to complete GUZMAN form. GUZMAN form explained to guardian who voiced understanding. GUZMAN also faxed to guardian who stated she would sign and return when back in office. ? Nataliia Siegel, Discharge Planning Asst
--- NOTE | 2023-11-17 16:11 | CASEMGMT ---
Signed GUZMAN received via fax. Nataliia Siegel, Discharge Planning Asst.
== END 2023-11-16 14:15 | disposition home or self-care (01) ==
LOC: ED 21:35 → MS3 21:53
PROVIDERS: Admitting Provider Internal Medicine; Emergency Provider Emergency Medicine; PCP Internal Medicine; Visit Provider Internal Medicine
DX: S22.41XD Multiple fractures of ribs, right side, subsequent encounter for fracture with routine healing (principal); F20.9 Schizophrenia, unspecified; E07.9 Disorder of thyroid, unspecified; R06.02 Shortness of breath; F17.210 Nicotine dependence, cigarettes, uncomplicated; Z86.711 Personal history of pulmonary embolism; Z86.718 Personal history of other venous thrombosis and embolism; Z79.01 Long term (current) use of anticoagulants; W19.XXXD Unspecified fall, subsequent encounter; E66.9 Obesity, unspecified; Z68.35 Body mass index [BMI] 35.0-35.9, adult; E03.9 Hypothyroidism, unspecified; Z79.890 Hormone replacement therapy; Z79.899 Other long term (current) drug therapy; K21.9 Gastro-esophageal reflux disease without esophagitis; F32.A Depression, unspecified; M19.90 Unspecified osteoarthritis, unspecified site; R91.8 Other nonspecific abnormal finding of lung field
CPT/HCPCS: 36415; 71250; 76536; 80053; 83735; 84100; 84439; 84443; 85025; 85610; 94668; 97162; 97166; 99221; 99285; 99406; J7030; A4216; G0378